=== PATIENT | male | born 1980 | race Two or more races ===

== ENCOUNTER 2019-09-10 13:09 | Inpatient (IN) | payer OTHER ==
[~2019-09-10] VITALS: Ht 170.2 cm; Wt 91.8 kg
[2019-09-10 13:46] VITALS: BP 127/78
[2019-09-10] MEDS ORDERED: Acetaminophen 500mg (ES) tab ORAL ONE ×2 (13:49→14:00)
[2019-09-10 14:03] LABS: APPEARANCE,URINE SLIGHTLY CLOUDY; BILIRUBIN, URINE NEGATIVE (NEGATIVE); GLUCOSE, URINE (UA) NEGATIVE (NEGATIVE); HEMATOCRIT 41.6 % (42.0-52.0); HEMOGLOBIN 14.8 G/DL (14.2-18.0); KETONES,URINE 4+ (NEGATIVE); LEUKOCYTE ESTERASE ,URINE 3+ (NEGATIVE); MEAN CORPUSCULAR VOLUME 87 FL (80-99); NITRITE,URINE NEGATIVE (NEGATIVE); PH,URINE 6 (4.5-8.0); PLATELET COUNT 165 K/UL (150-450); PROTEIN,URINE 3+ (NEGATIVE); RED BLOOD COUNT 4.79 M/UL (4.70-6.10); RED CELL DISTRIBUTION WIDTH 10.6 % (11.6-14.8); UROBILINOGEN,URINE 4 MG/DL (0.0-1.0); WHITE BLOOD COUNT 6.1 K/UL (4.8-10.8)
--- NOTE | 2019-09-10 14:10 | Emergency Room Report ---
History of Present Illness General Chief Complaint: Upper Respiratory Illness Source: Patient Present Illness HPI Disclaimer: Please note that this report is being documented using [employer] technology. This can lead to erroneous entry secondary to incorrect interpretation by the dictating instrument. HPI: 39-year-old male history of diabetes, spinal cord injury, presents from home with cough fever shortness of breath. Symptoms present for 1 week. Patient states he has a family member had positive coronavirus 2 days ago. Patient has a history of spinal cord injury and is nonambulatory. He self catheterizes 4 times daily. Denies nausea vomiting or diarrhea. Brought in by EMS. Hypoxic 90% on room air. Febrile on arrival. PMH: As above PSH: Reviewed Social Hx: Denies smoking drinking or illicit drug use Allergies: Coded Allergies: PENICILLINS (Unverified Allergy, Unknown, 09/10/19) Uncoded Allergies: PCN (Allergy, Unknown, 09/10/19) COVID-19 Screening Contact w/high risk pt: Yes Recent Travel to affected area: No Experienced COVID-19 symptoms?: Yes COVID-19 symptoms experienced: Shortness of Breath, Cough COVID-19 Testing performed [employer]: No Patient History Reviewed Nursing Documentation: PMH: Agreed; PSxH: Agreed Nursing Documentation-PMH Past Medical History: No History, Except For Hx Hypertension: Yes Hx Diabetes: Yes Review of Systems All Other Systems: negative except mentioned in HPI Physical Exam Vital Signs Date Time Temp Pulse Resp B/P (MAP) Pulse Ox O2 Delivery O2 Flow Rate FiO2 09/10/19 13:05 98.8 122 22 122/86 (98) 93 Nasal Cannula 2.0 Sp02 EP Interpretation: reviewed, normal General Appearance: well appearing, mild distress Head: normocephalic, atraumatic Eyes: bilateral eye PERRL, bilateral eye EOMI ENT: hearing grossly normal, moist mucus membranes Neck: full range of motion, supple Respiratory: no retraction, respiratory distress - Mild respiratory distress noted Cardiovascular #1: normal peripheral pulses, no murmur, tachycardia Gastrointestinal: non tender, soft, non-distended, no guarding Neurologic: alert, oriented x3, other - Bilateral lower extremity weakness noted, chronic Skin: normal color, warm/dry Procedures Critical Care Time Critical Care Time Critical care is managing this patient due to presentation with bilateral pneumonia UTI hypoxia requiring my acute intervention. Critical care time is 38 minutes and excludes procedures. Medical Decision Making Diagnostic Impression: Primary Impression: Suspected 2019 novel coronavirus infection Additional Impression: UTI (urinary tract infection) ER Course MDM: Patient presents from home short of breath hypoxic and febrile. Positive sick contacts. Differential included pneumonia, COVID-19, CHF, UTI, sepsis to name a few Clinical course-patient placed on the monitoring pulse oximetry, 4 L nasal cannula, septic work-up initiated, Tylenol given for fever. Urinalysis demonstrated evidence of infection. Chest x-ray demonstrated bilateral infiltrates, I am concerned for coronavirus infection in addition to UTI. Patient given IV antibiotics. Will be admitted to the telemetry floor under isolation. Labs - Laboratory Tests Test 09/10/19 13:38 White Blood Count 6.1 K/UL (4.8-10.8) Red Blood Count 4.79 M/UL (4.70-6.10) Hemoglobin 14.8 G/DL (14.2-18.0) Hematocrit 41.6 % (42.0-52.0) L Mean Corpuscular Volume 87 FL (80-99) Mean Corpuscular Hemoglobin 30.9 PG (27.0-31.0) Mean Corpuscular Hemoglobin Concent 35.5 G/DL (32.0-36.0) Red Cell Distribution Width 10.6 % (11.6-14.8) L Platelet Count 165 K/UL (150-450) Mean Platelet Volume 6.7 FL (6.5-10.1) Neutrophils (%) (Auto) % (45.0-75.0) Lymphocytes (%) (Auto) % (20.0-45.0) Monocytes (%) (Auto) % (1.0-10.0) Eosinophils (%) (Auto) % (0.0-3.0) Basophils (%) (Auto) % (0.0-2.0) Differential Total Cells Counted 100 Neutrophils % (Manual) 80 % (45-75) H Lymphocytes % (Manual) 18 % (20-45) L Monocytes % (Manual) 2 % (1-10) Eosinophils % (Manual) 0 % (0-3) Basophils % (Manual) 0 % (0-2) Band Neutrophils 0 % (0-8) Platelet Estimate Adequate Platelet Morphology Normal Red Blood Cell Morphology Normal Urine Color Yellow Urine Appearance Slightly cloudy Urine pH 6 (4.5-8.0) Urine Specific [place] 1.020 (1.005-1.035) Urine Protein 3+ (NEGATIVE) H Urine Glucose (UA) Negative (NEGATIVE) Urine Ketones 4+ (NEGATIVE) H Urine Blood 5+ (NEGATIVE) H Urine Nitrite Negative (NEGATIVE) Urine Bilirubin Negative (NEGATIVE) Urine Urobilinogen 4 MG/DL (0.0-1.0) H Urine Leukocyte Esterase 3+ (NEGATIVE) H Urine RBC 20-30 /HPF (0 - 0) H Urine WBC 20-30 /HPF (0 - 0) H Urine Squamous Epithelial Cells Occasional /LPF Urine Bacteria Few /HPF (NONE) Urine Mucus Few /LPF (NONE/OCC) H Sodium Level 131 MMOL/L (136-145) L Potassium Level 3.9 MMOL/L (3.5-5.1) Chloride Level 94 MMOL/L (98-107) L Carbon Dioxide Level 28 MMOL/L (21-32) Anion Gap 10 mmol/L (5-15) Blood Urea Nitrogen 8 mg/dL (7-18) Creatinine 1.0 MG/DL (0.55-1.30) Estimated Glomerular Filtration Rate > 60 mL/min (>60) Glucose Level 122 MG/DL (74-106) H Lactic Acid Level 1.10 mmol/L (0.4-2.0) Calcium Level 8.7 MG/DL (8.5-10.1) Total Bilirubin 0.4 MG/DL (0.2-1.0) Aspartate Amino Transferase (AST) 36 U/L (15-37) Alanine Aminotransferase (ALT) 45 U/L (12-78) Alkaline Phosphatase 67 U/L (46-116) Total Creatine Kinase 155 U/L (26-308) Creatine Kinase MB 0.5 NG/ML (0.0-3.6) Creatine Kinase MB Relative Index 0.3 Troponin I 0.000 ng/mL (0.000-0.056) Total Protein 8.1 G/DL (6.4-8.2) Albumin 3.3 G/DL (3.4-5.0) L Globulin 4.8 g/dL Albumin/Globulin Ratio 0.7 (1.0-2.7) L On reevaluation: Tachycardia improved Plan-patient will be admitted to the telemetry floor EKG Diagnostic Results Rate: normal Rhythm: other - Sinus tachycardia ST Segments: no acute changes Other Impression Sinus tachycardia Rhythm Strip Diag. Results EP Interpretation: yes Rate: 98 Rhythm: NSR, no ectopy Chest X-Ray Diagnostic Results Chest X-Ray Diagnostic Results : Chest X-Ray Ordered: Yes # of Views/Limited/Complete: 1 View Indication: Shortness of Breath EP Interpretation: Yes Interpretation: no effusion, no pneumothorax, other - Bilateral infiltrates noted Impression: Other - Bilateral infiltrates concerning for pneumonia Electronically Signed by: Alex Gomez MD Last Vital Signs Date Time Temp Pulse Resp B/P (MAP) Pulse Ox O2 Delivery O2 Flow Rate FiO2 09/10/19 14:00 123 27 Nasal Cannula 4.0 09/10/19 13:46 102.8 127/78 96 Status: improved Disposition: ADMITTED INPATIENT Condition: Serious Referrals: NON PHYSICIAN (PCP) Alex Gomez M.D. Sep 10, 2019 14:10
[2019-09-10 14:12] LABS: ANION GAP 10 mmol/L (5-15); BLOOD UREA NITROGEN 8 mg/dL (7-18); CALCIUM 8.7 MG/DL (8.5-10.1); CARBON DIOXIDE 28 MMOL/L (21-32); CHLORIDE 94 MMOL/L (98-107); POTASSIUM 3.9 MMOL/L (3.5-5.1); SODIUM 131 MMOL/L (136-145)
[2019-09-10 14:16] LABS: COLOR,URINE YELLOW
[2019-09-10 14:26] LABS: ALANINE AMINOTRANSFERASE 45 U/L (12-78); ALBUMIN 3.3 G/DL (3.4-5.0); ALBUMIN/GLOBULIN RATIO 0.7 (1.0-2.7); ALKALINE PHOSPHATASE 67 U/L (46-116); ASPARTATE AMINO TRANSFERASE 36 U/L (15-37); BILIRUBIN,TOTAL 0.4 MG/DL (0.2-1.0); CKMB 0.5 NG/ML (0.0-3.6); CREATINE KINASE 155 U/L (26-308)
--- NOTE | 2019-09-10 14:41 | Diagnostic Imaging Report ---
Indication: Shortness of breath Technique: One view of the chest Comparison: none Findings: Peripheral hazy infiltrates are seen in the left mid and lower lung and in the right midlung. The pleural spaces are clear. The heart is borderline enlarged. There is evidence of extensive thoracic spinal fusion surgery Impression: Bilateral infiltrates, likely pneumonia
[2019-09-10] MEDS ORDERED: TYLENOL EXTRA500 MG ORAL (14:52)
[2019-09-10 15:17] VITALS: BP 120/70
[2019-09-10] MEDS ORDERED: cefTRIAXone 1 GM in NS 55 ML IVPB ONE (15:45)
[2019-09-10] MEDS ORDERED: Azithromycin 500 MG in NS 275 ML IV ONE (15:45)
[2019-09-10 17:42] VITALS: BP 115/69
[2019-09-10 20:00] VITALS: BP 123/76
[2019-09-10] MEDS ORDERED: Albuterol 90mcg Inhaler 8gm INH PRN (21:00)
[2019-09-10] MEDS ORDERED: Hydroxychloroquine Fact Sheet MISC ONE (21:00)
[2019-09-10] MEDS: Heparin 5000 units/ml inj SUBQ SCH (22:37)
[2019-09-11] VITALS: BP 119/71
--- NOTE | 2019-09-11 01:00 | History and Physical Report ---
DATE OF ADMISSION: 09/10/2019 REASON FOR ADMISSION: Possible COVID pneumonia. HISTORY OF PRESENT ILLNESS: This is a 39-year-old male with medical problems, presents with cough and shortness of breath. Symptoms ongoing for approximately 1 week. The patient notes that his family members had positive COVID 2 days ago. The patient is nonambulatory. He was noted to be hypoxemic at 90% on room air. The patient also with fevers up to 102 in the emergency room. The patient admitted and under isolation. PAST MEDICAL HISTORY: Notable for diabetes, spinal cord injury, history of urinary retention with need for self-catheterization, nonambulatory state. MEDICATIONS: Reviewed. ALLERGIES: Reviewed. SOCIAL HISTORY: Lives at home with family. PHYSICAL EXAMINATION: GENERAL: Well-developed male, in mild distress. VITAL SIGNS: Reviewed. T-max 102.8, blood pressure 120/70, pulse rate up to 120, saturation 99% on 4 liters. HEENT: Negative. NECK: Supple. LUNGS: With moderate breath sounds. Some rhonchi noted. CARDIAC: Tachycardic. ABDOMEN: Soft. EXTREMITIES: No edema. NEUROLOGICAL: Patient is bedbound. LABORATORY DATA: Reviewed. Noted left shift with 80% neutrophils, lymphopenia. Sodium 131, albumin 3.3. IMPRESSION: Abnormal chest x-ray with concern for COVID-related pneumonia, fevers, hypoxemia, spinal cord injury. RECOMMENDATION: ID evaluation. Consider empiric therapy. Monitor clinically. Follow up x-ray. Follow up oxygen needs. Optimize care. Monitor for further respiratory deterioration. Admit to acute and follow clinically for changes. Jordan Howell M.D. DR: LISA JOB#: [id number] CC:
[2019-09-11 04:00] VITALS: BP 114/70
[2019-09-11 06:25] LABS: BASOPHILS % (AUTO) 0.3 % (0.0-2.0); HEMATOCRIT 36.8 % (42.0-52.0); HEMOGLOBIN 13.3 G/DL (14.2-18.0); LYMPHOCYTES % (AUTO) 19.4 % (20.0-45.0); MEAN CORPUSCULAR VOLUME 87 FL (80-99); MONOCYTES % (AUTO) 3.9 % (1.0-10.0); NEUTROPHILS % (AUTO) 76.4 % (45.0-75.0); PLATELET COUNT 167 K/UL (150-450); RED BLOOD COUNT 4.24 M/UL (4.70-6.10); RED CELL DISTRIBUTION WIDTH 10.6 % (11.6-14.8); WHITE BLOOD COUNT 6.7 K/UL (4.8-10.8)
[2019-09-11 07:12] LABS: ANION GAP 11 mmol/L (5-15); BLOOD UREA NITROGEN 4 mg/dL (7-18); CALCIUM 8.1 MG/DL (8.5-10.1); CARBON DIOXIDE 24 MMOL/L (21-32); CHLORIDE 99 MMOL/L (98-107); CREATININE 0.6 MG/DL (0.55-1.30); FERRITIN 543 NG/ML (8-388); POTASSIUM 3.8 MMOL/L (3.5-5.1); SODIUM 134 MMOL/L (136-145)
[2019-09-11 08:00] VITALS: BP 118/75
--- NOTE | 2019-09-11 08:14 | General Progress Note ---
Assessment/Plan Assessment/Plan: IMPRESSION: Abnormal chest x-ray with concern for COVID-related pneumonia, fevers, hypoxemia, spinal cord injury. elevated CRP and ferritin PLAN isolation ID noted DVT prophylaxis maintain same monitor as is impression, plan, and exam edited and reviewed in detail care discussed with RN Subjective Allergies: Coded Allergies: PENICILLINS (Unverified Allergy, Unknown, 09/10/19) Uncoded Allergies: PCN (Allergy, Unknown, 09/10/19) Subjective care noted Objective Last 24 Hour Vital Signs Date Time Temp Pulse Resp B/P (MAP) Pulse Ox O2 Delivery O2 Flow Rate FiO2 09/11/19 04:00 88 09/11/19 04:00 99.5 110 20 114/70 (85) 99 09/11/19 02:14 Nasal Cannula 3.0 09/11/19 01:57 100.6 09/11/19 00:28 103.5 09/11/19 00:00 121 09/11/19 00:00 103.6 118 20 119/71 (87) 97 09/10/19 20:00 102.2 100 23 123/76 (92) 100 09/10/19 20:00 101 09/10/19 18:35 99.9 97 23 115/69 98 Nasal Cannula 3.0 09/10/19 17:42 99.9 97 23 115/69 98 Nasal Cannula 3.0 09/10/19 15:17 99.9 100 21 120/70 99 Nasal Cannula 4.0 09/10/19 15:15 99.9 09/10/19 14:00 123 27 Nasal Cannula 4.0 09/10/19 13:46 102.8 123 27 127/78 96 Nasal Cannula 4.0 09/10/19 13:05 98.8 122 22 122/86 (98) 93 Nasal Cannula 2.0 Intake and Output 09/10/19 09/11/19 19:00 07:00 Intake Total 450 ml Output Total 1500 ml Balance -1050 ml Intake Oral 450 ml Output Urine Total 1500 ml Laboratory Tests 09/10/19 13:38: White Blood Count 6.1, Red Blood Count 4.79, Hemoglobin 14.8, Hematocrit 41.6L, Mean Corpuscular Volume 87, Mean Corpuscular Hemoglobin 30.9, Mean Corpuscular Hemoglobin Concent 35.5, Red Cell Distribution Width 10.6L, Platelet Count 165, Mean Platelet Volume 6.7, Neutrophils (%) (Auto) , Lymphocytes (%) (Auto) , Monocytes (%) (Auto) , Eosinophils (%) (Auto) , Basophils (%) (Auto) , Differential Total Cells Counted 100, Neutrophils % (Manual) 80H, Lymphocytes % (Manual) 18L, Monocytes % (Manual) 2, Eosinophils % (Manual) 0, Basophils % ( Manual) 0, Band Neutrophils 0, Platelet Estimate Adequate, Platelet Morphology Normal, Red Blood Cell Morphology Normal, Urine Color Yellow, Urine Appearance Slightly cloudy, Urine pH 6, Urine Specific [place] 1.020, Urine Protein 3+H, Urine Glucose (UA) Negative, Urine Ketones 4+H, Urine Blood 5+H, Urine Nitrite Negative, Urine Bilirubin Negative, Urine Urobilinogen 4H, Urine Leukocyte Esterase 3+H, Urine RBC 20-30H, Urine WBC 20-30H, Urine Squamous Epithelial Cells Occasional, Urine Bacteria Few, Urine Mucus FewH, Sodium Level 131L, Potassium Level 3.9, Chloride Level 94L, Carbon Dioxide Level 28, Anion Gap 10, Blood Urea Nitrogen 8, Creatinine 1.0, Estimat Glomerular Filtration Rate > 60, Glucose Level 122H, Lactic Acid Level 1.10, Calcium Level 8.7, Total Bilirubin 0.4, Aspartate Amino Transf (AST/SGOT) 36, Alanine Aminotransferase (ALT/SGPT) 45, Alkaline Phosphatase 67, Total Creatine Kinase 155, Creatine Kinase MB 0.5, Creatine Kinase MB Relative Index 0.3, Troponin I 0.000, Total Protein 8.1, Albumin 3.3L, Globulin 4.8, Albumin/Globulin Ratio 0.7L 09/11/19 05:00: Sodium Level 134L, Potassium Level 3.8, Chloride Level 99, Carbon Dioxide Level 24, Anion Gap 11, Blood Urea Nitrogen 4L, Creatinine 0.6, Estimat Glomerular Filtration Rate > 60, Glucose Level 93, Calcium Level 8.1L, D-Dimer 0.33, Ferritin 543H, C-Reactive Protein, Quantitative 18.3H 09/11/19 05:50: White Blood Count 6.7, Red Blood Count 4.24L, Hemoglobin 13.3L, Hematocrit 36.8L , Mean Corpuscular Volume 87, Mean Corpuscular Hemoglobin 31.4H, Mean Corpuscular Hemoglobin Concent 36.1H, Red Cell Distribution Width 10.6L, Platelet Count 167, Mean Platelet Volume 6.6, Neutrophils (%) (Auto) 76.4H, Lymphocytes (%) (Auto) 19.4L, Monocytes (%) (Auto) 3.9, Eosinophils (%) (Auto) 0.0, Basophils (%) (Auto) 0.3 Height (Feet): 5 Height (Inches): 7.00 Weight (Pounds): 200 Objective deferred to ANGELES+ Jordan Howell MD Sep 11, 2019 08:14
[2019-09-11] MEDS: cefTRIAXone 1 GM in D5W 55 ML IVPB SCH (08:54)
[2019-09-11] MEDS: Heparin 5000 units/ml inj SUBQ SCH ×2 (08:57→21:08)
[2019-09-11] MEDS ORDERED: Remdesivir Fact Sheet MISC SCH (11:45)
[2019-09-11 12:00] VITALS: BP 108/69
[2019-09-11] MEDS ORDERED: Loading Dose:Remdesivir 200mg/NS 210ml IV SCH (13:00)
[2019-09-11 16:00] VITALS: BP 113/71
--- NOTE | 2019-09-11 17:18 | Diagnostic Imaging Report ---
Indication: Shortness of breath Technique: One view of the chest Comparison: 09/10/2019 Findings: Bilateral interstitial and airspace opacities are unchanged. Thoracic spine fusion hardware is unchanged. Impression: Unchanged bilateral infiltrates, likely pneumonia.
[2019-09-11 20:00] VITALS: BP 121/72
[2019-09-11] MEDS: guaiFENesin /DM 10ml syrup ORAL PRN (20:58)
--- NOTE | 2019-09-11 22:30 | Consultation ---
DATE OF CONSULTATION: 09/11/2019 INFECTIOUS DISEASE CONSULTATION This consult is for coverage of Dr. Pena. CONSULTING PHYSICIAN: Albino Sage MD. PRIMARY ATTENDING: Jordan Howell MD. REASON FOR CONSULT: COVID-19 pneumonia, UTI. HISTORY OF PRESENT ILLNESS: This 39-year-old male admitted yesterday from home complaining of shortness of breath, cough for one week. Patient had a family member that became positive for COVID-19 disease 2 days ago. He was hypoxemic at the time of admission. PAST MEDICAL HISTORY: Significant for spinal cord injury. Patient is paraplegic. Has urinary incontinent and self-catheterizes himself. ALLERGIES: Allergic to penicillin. PAST SURGICAL HISTORY: History of thoracic spine surgery. SOCIAL HISTORY: Patient is from [place]. Denies alcohol, drug abuse, or smoking. MEDICATIONS: Patient getting Remdesivir, ceftriaxone, Protonix, albuterol, Tylenol, Ambien, heparin. PHYSICAL EXAMINATION: VITAL SIGNS: Temperature 101.4, pulse 98, blood pressure 118/75. GENERAL APPEARANCE: No acute distress. Seems to have normal weight. HEAD AND NECK: [place] conjunctivae. HEART: Normal rate. LUNGS: Clear. ABDOMEN: Soft. EXTREMITIES: Has no edema. Has atrophic muscle and legs. NEUROLOGIC: He is awake, alert, oriented x3. Paraplegic. LABORATORY AND DIAGNOSTIC DATA: WBC 6.7, hemoglobin 13.3, hematocrit 36.8, platelets 167. Sodium 134, potassium 3.8, chloride 99, bicarbonate 24, BUN 4, creatinine 0.6, glucose 93. Ferritin 543. CRP 18.3. Blood gas showed pO2 of 94.5, O2 saturation 97.2. UA showed wbc of 20 to 30, rbc of 20 to 30. Urine culture growing gram-negative bacilli. Sputum culture is pending. COVID-19 test was positive. IMPRESSION: COVID-19 pneumonia. Has bacteriuria UTI. Has paraplegia, urinary incontinence. Has spinal cord injury history. RECOMMENDATION: Continue ceftriaxone. Consider Remdesivir. We will follow up the cultures. At the end of my exam, I thank Dr. Howell for involving me in the care of this patient. Albino Sage M.D. DR: NOEL JOB#: [id number] CC: ORQUIDEA
[2019-09-12] VITALS: BP 107/72
[2019-09-12 04:00] VITALS: BP 130/69
[2019-09-12 06:58] LABS: ALANINE AMINOTRANSFERASE 44 U/L (12-78); ALBUMIN 2.7 G/DL (3.4-5.0); ALKALINE PHOSPHATASE 65 U/L (46-116); ASPARTATE AMINO TRANSFERASE 61 U/L (15-37); BILIRUBIN,DIRECT 0.1 MG/DL (0.0-0.3); BILIRUBIN,TOTAL 0.5 MG/DL (0.2-1.0)
[2019-09-12 08:00] VITALS: BP 117/77
[2019-09-12] MEDS: cefTRIAXone 1 GM in D5W 55 ML IVPB SCH (08:46)
[2019-09-12] MEDS: Heparin 5000 units/ml inj SUBQ SCH ×2 (08:49→22:28)
--- NOTE | 2019-09-12 09:03 | General Progress Note ---
Assessment/Plan Assessment/Plan: IMPRESSION: Abnormal chest x-ray + COVID-related pneumonia, fevers, hypoxemia, spinal cord injury. elevated CRP and ferritin PLAN isolation ID noted DVT prophylaxis maintain same monitor as is impression, plan, and exam edited and reviewed in detail care discussed with RN Subjective Allergies: Coded Allergies: PENICILLINS (Verified Allergy, Unknown, 09/11/19) Patient does not remember the reaction or severity, currently tolerates Ceftriaxone IV and is having no allergic reactions Uncoded Allergies: PCN (Allergy, Unknown, 09/10/19) Subjective care noted Objective Last 24 Hour Vital Signs Date Time Temp Pulse Resp B/P (MAP) Pulse Ox O2 Delivery O2 Flow Rate FiO2 09/12/19 04:00 96 09/12/19 04:00 99.5 83 20 130/69 (89) 97 09/12/19 00:00 99.7 85 20 107/72 (84) 97 09/12/19 00:00 86 09/11/19 22:21 102.2 09/11/19 21:00 Nasal Cannula 3.0 09/11/19 20:00 96 09/11/19 20:00 102.2 100 20 121/72 (88) 97 09/11/19 16:00 101.5 102 20 113/71 (85) 98 09/11/19 15:40 105 09/11/19 12:00 99.9 92 20 108/69 (82) 98 09/11/19 11:32 95 Intake and Output 09/11/19 09/12/19 19:00 07:00 Intake Total 960 ml 550 ml Output Total 1300 ml 1500 ml Balance -340 ml -950 ml Intake Oral 960 ml 550 ml Output Urine Total 1300 ml 1500 ml Laboratory Tests 09/12/19 04:00: Total Bilirubin 0.5, Direct Bilirubin 0.1, Aspartate Amino Transf (AST/SGOT) 61H , Alanine Aminotransferase (ALT/SGPT) 44, Alkaline Phosphatase 65, Total Protein 7.4, Albumin 2.7L Height (Feet): 5 Height (Inches): 7.00 Weight (Pounds): 202 Objective deferred to ANGELES+ Jordan Howell MD Sep 12, 2019 09:03
--- NOTE | 2019-09-12 10:59 | Infectious Diseases Prog Note ---
Assessment/Plan Assessment/Plan antibiotics ceftriaxone 6.3.20 - remdesivir EUA 6.4.20 - A 1. COVID 19 pneumonia on 3 liters O2, 97 percent saturation 2. e.coli UTI 3. spinal cord injury 4. paraplegia P 1. continue ceftriaxone 4 more days 2. continue remdesivir EUA 3 more days 3. continue isolation 4. will follow up cultures Subjective Respiratory: Reports: shortness of breath, dry cough Gastrointestinal/Abdominal: Denies: nausea, vomiting Musculoskeletal: Denies: pain Allergies: Coded Allergies: PENICILLINS (Verified Allergy, Unknown, 09/11/19) Patient does not remember the reaction or severity, currently tolerates Ceftriaxone IV and is having no allergic reactions Uncoded Allergies: PCN (Allergy, Unknown, 09/10/19) Objective Vital Signs Last 24 Hour Vital Signs Date Time Temp Pulse Resp B/P (MAP) Pulse Ox O2 Delivery O2 Flow Rate FiO2 09/12/19 09:00 Nasal Cannula 3.0 09/12/19 08:00 98.8 94 18 117/77 (90) 97 09/12/19 04:00 96 09/12/19 04:00 99.5 83 20 130/69 (89) 97 09/12/19 00:00 99.7 85 20 107/72 (84) 97 09/12/19 00:00 86 09/11/19 22:21 102.2 09/11/19 21:00 Nasal Cannula 3.0 09/11/19 20:00 96 09/11/19 20:00 102.2 100 20 121/72 (88) 97 09/11/19 16:00 101.5 102 20 113/71 (85) 98 09/11/19 15:40 105 09/11/19 12:00 99.9 92 20 108/69 (82) 98 09/11/19 11:32 95 Height (Feet): 5 Height (Inches): 7.00 Weight (Pounds): 202 Microbiology Date/Time Source Procedure Growth Status 09/10/19 13:38 Blood Blood Culture - Preliminary NO GROWTH AFTER 24 HOURS Resulted 09/10/19 13:25 Blood Blood Culture - Preliminary NO GROWTH AFTER 24 HOURS Resulted 09/11/19 00:00 Sputum Expectorated Gram Stain - Final Resulted 09/11/19 00:00 Sputum Expectorated Sputum Culture - Preliminary NORMAL UPPER RESPIRATORY NARCISO AT 24 ... Resulted 09/10/19 13:38 Nasopharynx Coronavirus COVID-19 PCR (JACE) - Final Complete 09/10/19 13:38 Urine,Clean Catch Urine Culture - Final Escherichia Coli Complete Laboratory Tests Test 09/12/19 04:00 Total Bilirubin 0.5 MG/DL (0.2-1.0) Direct Bilirubin 0.1 MG/DL (0.0-0.3) Aspartate Amino Transf (AST/SGOT) 61 U/L (15-37) H Alanine Aminotransferase (ALT/SGPT) 44 U/L (12-78) Alkaline Phosphatase 65 U/L (46-116) Total Protein 7.4 G/DL (6.4-8.2) Albumin 2.7 G/DL (3.4-5.0) L Current Medications Medications (Trade) Dose Ordered Sig/Prasad Route PRN Reason Start Time Stop Time Status Last Admin Dose Admin Acetaminophen (Tylenol) 650 mg Q4H PRN ORAL Mild Pain (Pain Scale 1-3) 09/10/19 21:00 10/10/19 20:59 09/11/19 21:51 Al Hydroxide/Mg Hydroxide (Mylanta) 30 ml Q4H PRN ORAL Constipation 09/10/19 21:00 10/10/19 20:59 Albuterol Sulfate (Proventil MDI) 2 puff Q4H PRN INH Shortness of Breath 09/10/19 21:00 12/09/19 20:59 Ceftriaxone Sodium 1 gm/ Dextrose 55 ml @ 110 mls/hr Q24H IVPB 09/11/19 09:00 09/18/19 08:59 09/12/19 08:46 Guaifenesin/ Dextromethorphan (Robitussin DM Syrup) 10 ml Q4H PRN ORAL For Cough 09/11/19 18:45 12/10/19 18:44 09/11/19 20:58 Heparin Sodium (Porcine) (Heparin 5000 units/ml) 5,000 units EVERY 12 HOURS SUBQ 09/10/19 21:00 10/25/19 20:59 09/12/19 08:49 Pantoprazole (Protonix) 40 mg DAILY ORAL 09/11/19 09:00 10/11/19 08:59 09/12/19 08:46 Remdesivir 100 mg/ Sodium Chloride 250 ml @ 250 mls/hr Q24H IV 09/12/19 13:00 09/15/19 13:59 Lucien Pena MD Sep 12, 2019 10:59
[2019-09-12 11:49] VITALS: BP 120/69
[2019-09-12] MEDS: Maintenance Dose:Remdesivir 100mg/NS 230ml x 4 Doses IV SCH (12:52)
[2019-09-12 16:00] VITALS: BP 116/73
[2019-09-12 20:00] VITALS: BP 121/78
[2019-09-13] VITALS: BP 125/66
[2019-09-13 04:00] VITALS: BP 119/79
[2019-09-13 06:02] LABS: ANION GAP 13 mmol/L (5-15); BLOOD UREA NITROGEN 7 mg/dL (7-18); CALCIUM 8.6 MG/DL (8.5-10.1); CARBON DIOXIDE 25 MMOL/L (21-32); CHLORIDE 98 MMOL/L (98-107); CREATININE 0.7 MG/DL (0.55-1.30); POTASSIUM 3.5 MMOL/L (3.5-5.1); SODIUM 136 MMOL/L (136-145)
[2019-09-13 06:10] LABS: ALANINE AMINOTRANSFERASE 59 U/L (12-78); ALBUMIN 2.6 G/DL (3.4-5.0); ALKALINE PHOSPHATASE 66 U/L (46-116); ASPARTATE AMINO TRANSFERASE 51 U/L (15-37); BILIRUBIN,DIRECT < 0.1 MG/DL (0.0-0.3); BILIRUBIN,TOTAL 0.3 MG/DL (0.2-1.0)
--- NOTE | 2019-09-13 07:57 | General Progress Note ---
Assessment/Plan Assessment/Plan: IMPRESSION: Abnormal chest x-ray + COVID-related pneumonia, fevers, hypoxemia, spinal cord injury. elevated CRP and ferritin PLAN isolation ID noted DVT prophylaxis maintain same monitor as is taper oxygen repeat cxr in am impression, plan, and exam edited and reviewed in detail care discussed with RN Subjective Allergies: Coded Allergies: PENICILLINS (Verified Allergy, Unknown, 09/11/19) Patient does not remember the reaction or severity, currently tolerates Ceftriaxone IV and is having no allergic reactions Uncoded Allergies: PCN (Allergy, Unknown, 09/10/19) Subjective care noted Objective Last 24 Hour Vital Signs Date Time Temp Pulse Resp B/P (MAP) Pulse Ox O2 Delivery O2 Flow Rate FiO2 09/13/19 04:00 87 09/13/19 04:00 96.8 81 18 119/79 (92) 97 09/13/19 00:00 97.7 88 18 125/66 (85) 97 09/13/19 00:00 102 09/12/19 21:00 Nasal Cannula 3.0 09/12/19 20:00 96.6 92 18 121/78 (92) 97 09/12/19 20:00 101 09/12/19 16:00 93 09/12/19 16:00 98.8 92 22 116/73 (87) 95 09/12/19 12:00 90 09/12/19 11:49 98.4 83 22 120/69 (86) 93 09/12/19 09:00 Nasal Cannula 3.0 09/12/19 08:00 98.8 94 18 117/77 (90) 97 Intake and Output 09/12/19 09/13/19 19:00 07:00 Intake Total 700 ml Output Total 1300 ml 700 ml Balance -600 ml -700 ml Intake Oral 700 ml Output Urine Total 1300 ml 700 ml # Bowel Movements 1 Laboratory Tests 09/13/19 05:15: Sodium Level 136, Potassium Level 3.5, Chloride Level 98, Carbon Dioxide Level 25, Anion Gap 13, Blood Urea Nitrogen 7, Creatinine 0.7, Estimat Glomerular Filtration Rate > 60, Glucose Level 104, Calcium Level 8.6, Total Bilirubin 0.3 , Direct Bilirubin < 0.1, Aspartate Amino Transf (AST/SGOT) 51H, Alanine Aminotransferase (ALT/SGPT) 59, Alkaline Phosphatase 66, Total Protein 7.4, Albumin 2.6L Height (Feet): 5 Height (Inches): 7.00 Weight (Pounds): 202 Objective deferred to ANGELES+ Jordan Howell MD Sep 13, 2019 07:57
[2019-09-13 08:00] VITALS: BP 113/75
[2019-09-13] MEDS: cefTRIAXone 1 GM in D5W 55 ML IVPB SCH (09:44)
[2019-09-13] MEDS: Heparin 5000 units/ml inj SUBQ SCH ×2 (09:46→20:59)
--- NOTE | 2019-09-13 10:28 | Infectious Diseases Prog Note ---
Assessment/Plan Assessment/Plan antibiotics ceftriaxone 6.3.20 - remdesivir EUA 6.4.20 - A 1. COVID 19 pneumonia on 3 liters O2, 98 percent saturation 2. e.coli UTI 3. spinal cord injury 4. paraplegia P 1. continue ceftriaxone 3 more days 2. continue remdesivir EUA 2 more days 3. continue isolation 4. will follow up cultures Subjective ROS Limited/Unobtainable: Yes Allergies: Coded Allergies: PENICILLINS (Verified Allergy, Unknown, 09/11/19) Patient does not remember the reaction or severity, currently tolerates Ceftriaxone IV and is having no allergic reactions Uncoded Allergies: PCN (Allergy, Unknown, 09/10/19) Objective Vital Signs Last 24 Hour Vital Signs Date Time Temp Pulse Resp B/P (MAP) Pulse Ox O2 Delivery O2 Flow Rate FiO2 09/13/19 08:00 98.1 83 20 113/75 (88) 98 09/13/19 04:00 87 09/13/19 04:00 96.8 81 18 119/79 (92) 97 09/13/19 00:00 97.7 88 18 125/66 (85) 97 09/13/19 00:00 102 09/12/19 21:00 Nasal Cannula 3.0 09/12/19 20:00 96.6 92 18 121/78 (92) 97 09/12/19 20:00 101 09/12/19 16:00 93 09/12/19 16:00 98.8 92 22 116/73 (87) 95 09/12/19 12:00 90 09/12/19 11:49 98.4 83 22 120/69 (86) 93 Height (Feet): 5 Height (Inches): 7.00 Weight (Pounds): 202 Microbiology Date/Time Source Procedure Growth Status 09/10/19 13:38 Blood Blood Culture - Preliminary NO GROWTH AFTER 48 HOURS Resulted 09/10/19 13:25 Blood Blood Culture - Preliminary NO GROWTH AFTER 48 HOURS Resulted 09/11/19 00:00 Sputum Expectorated Gram Stain - Final Complete 09/11/19 00:00 Sputum Expectorated Sputum Culture - Final NORMAL UPPER RESPIRATORY NARCISO PRESENT Complete 09/10/19 13:38 Nasopharynx Coronavirus COVID-19 PCR ([facility]) - Final Complete 09/10/19 13:38 Urine,Clean Catch Urine Culture - Final Escherichia Coli Complete Laboratory Tests Test 09/13/19 05:15 Sodium Level 136 MMOL/L (136-145) Potassium Level 3.5 MMOL/L (3.5-5.1) Chloride Level 98 MMOL/L (98-107) Carbon Dioxide Level 25 MMOL/L (21-32) Anion Gap 13 mmol/L (5-15) Blood Urea Nitrogen 7 mg/dL (7-18) Creatinine 0.7 MG/DL (0.55-1.30) Estimat Glomerular Filtration Rate > 60 mL/min (>60) Glucose Level 104 MG/DL (74-106) Calcium Level 8.6 MG/DL (8.5-10.1) Total Bilirubin 0.3 MG/DL (0.2-1.0) Direct Bilirubin < 0.1 MG/DL (0.0-0.3) Aspartate Amino Transf (AST/SGOT) 51 U/L (15-37) H Alanine Aminotransferase (ALT/SGPT) 59 U/L (12-78) Alkaline Phosphatase 66 U/L (46-116) Total Protein 7.4 G/DL (6.4-8.2) Albumin 2.6 G/DL (3.4-5.0) L Current Medications Medications (Trade) Dose Ordered Sig/Prasad Route PRN Reason Start Time Stop Time Status Last Admin Dose Admin Acetaminophen (Tylenol) 650 mg Q4H PRN ORAL Mild Pain (Pain Scale 1-3) 09/10/19 21:00 10/10/19 20:59 09/11/19 21:51 Al Hydroxide/Mg Hydroxide (Mylanta) 30 ml Q4H PRN ORAL Constipation 09/10/19 21:00 10/10/19 20:59 Albuterol Sulfate (Proventil MDI) 2 puff Q4H PRN INH Shortness of Breath 09/10/19 21:00 12/09/19 20:59 Ceftriaxone Sodium 1 gm/ Dextrose 55 ml @ 110 mls/hr Q24H IVPB 09/11/19 09:00 09/18/19 08:59 09/13/19 09:44 Guaifenesin/ Dextromethorphan (Robitussin DM Syrup) 10 ml Q4H PRN ORAL For Cough 09/11/19 18:45 12/10/19 18:44 09/11/19 20:58 Heparin Sodium (Porcine) (Heparin 5000 units/ml) 5,000 units EVERY 12 HOURS SUBQ 09/10/19 21:00 10/25/19 20:59 09/13/19 09:46 Pantoprazole (Protonix) 40 mg DAILY ORAL 09/11/19 09:00 10/11/19 08:59 09/13/19 09:44 Remdesivir 100 mg/ Sodium Chloride 250 ml @ 250 mls/hr Q24H IV 09/12/19 13:00 09/15/19 13:59 09/12/19 12:52 Lucien Pena MD Sep 13, 2019 10:28
[2019-09-13 12:00] VITALS: BP 128/84
[2019-09-13] MEDS: Maintenance Dose:Remdesivir 100mg/NS 230ml x 4 Doses IV SCH (12:49)
[2019-09-13] MEDS: guaiFENesin /DM 10ml syrup ORAL PRN ×2 (12:57→18:09)
[2019-09-13 16:00] VITALS: BP 116/74
[2019-09-13 20:00] VITALS: BP 146/88
[2019-09-14] VITALS: BP 126/76
[2019-09-14 04:00] VITALS: BP 133/63
[2019-09-14 04:25] LABS: ALANINE AMINOTRANSFERASE 71 U/L (12-78); ALBUMIN 2.5 G/DL (3.4-5.0); ALKALINE PHOSPHATASE 69 U/L (46-116); ASPARTATE AMINO TRANSFERASE 60 U/L (15-37); BILIRUBIN,DIRECT 0.1 MG/DL (0.0-0.3); BILIRUBIN,TOTAL 0.4 MG/DL (0.2-1.0)
[2019-09-14 08:00] VITALS: BP 120/79
--- NOTE | 2019-09-14 08:49 | General Progress Note ---
Assessment/Plan Assessment/Plan: IMPRESSION: Abnormal chest x-ray + COVID-related pneumonia, fevers, hypoxemia, spinal cord injury. elevated CRP and ferritin PLAN isolation ID noted DVT prophylaxis maintain same monitor as is taper oxygen repeat cxr to assess for improvement impression, plan, and exam edited and reviewed in detail care discussed with RN Subjective Allergies: Coded Allergies: PENICILLINS (Verified Allergy, Unknown, 09/11/19) Patient does not remember the reaction or severity, currently tolerates Ceftriaxone IV and is having no allergic reactions Uncoded Allergies: PCN (Allergy, Unknown, 09/10/19) Subjective care noted Objective Last 24 Hour Vital Signs Date Time Temp Pulse Resp B/P (MAP) Pulse Ox O2 Delivery O2 Flow Rate FiO2 09/14/19 04:00 92 09/14/19 04:00 99.1 90 19 133/63 (86) 95 09/14/19 00:00 99.7 82 18 126/76 (93) 97 09/14/19 00:00 105 09/13/19 21:00 Nasal Cannula 3.0 09/13/19 20:00 100 09/13/19 20:00 100.0 82 18 146/88 (107) 95 09/13/19 16:00 98.4 82 20 116/74 (88) 98 09/13/19 16:00 88 09/13/19 12:00 88 09/13/19 12:00 97.9 74 20 128/84 (99) 98 09/13/19 09:00 Nasal Cannula 3.0 Intake and Output 09/13/19 09/14/19 19:00 07:00 Intake Total 236 ml Output Total 2400 ml Balance 236 ml -2400 ml Intake Oral 236 ml Output Urine Total 2400 ml # Bowel Movements 1 Laboratory Tests 09/14/19 04:00: Total Bilirubin 0.4, Direct Bilirubin 0.1, Aspartate Amino Transf (AST/SGOT) 60H , Alanine Aminotransferase (ALT/SGPT) 71, Alkaline Phosphatase 69, Total Protein 7.2, Albumin 2.5L Height (Feet): 5 Height (Inches): 7.00 Weight (Pounds): 202 Objective deferred to ANGELES+ Jordan Howell MD Sep 14, 2019 08:49
[2019-09-14] MEDS: cefTRIAXone 1 GM in D5W 55 ML IVPB SCH (09:05)
[2019-09-14] MEDS: Heparin 5000 units/ml inj SUBQ SCH ×2 (09:06→20:30)
--- NOTE | 2019-09-14 10:22 | Diagnostic Imaging Report ---
EXAM: XR Chest, 1 View CLINICAL HISTORY: Shortness of breath TECHNIQUE: Frontal view of the chest. COMPARISON: Chest x-ray dated 09/11/19 FINDINGS: Lungs: No significant change in the patchy interstitial and airspace opacities in bilateral lungs. No new consolidation seen. Pleural space: Unremarkable. The costophrenic angles are sharp. No visible pneumothorax. Heart: Unremarkable. No cardiomegaly. Mediastinum: Unremarkable. Bones/joints: Intact appearance of thoracic spine fixation hardware. Tubes, lines and devices: Telemetry leads overlie the thorax. IMPRESSION: No significant interval change in the bilateral pulmonary infiltrates concerning for pneumonia.
[2019-09-14 12:00] VITALS: BP 112/71
[2019-09-14] MEDS: Maintenance Dose:Remdesivir 100mg/NS 230ml x 4 Doses IV SCH (12:50)
--- NOTE | 2019-09-14 14:22 | Infectious Diseases Prog Note ---
Assessment/Plan Assessment/Plan A 1. COVID19 pneumonia 2. E.coli UTI 3. spinal cord injury 4. paraplegia P 1. continue ceftriaxone 2 more days 2. continue remdesivir EUA 1 more day 3. continue isolation Subjective ROS Limited/Unobtainable: Yes Constitutional: Reports: fever, other - [id number] Allergies: Coded Allergies: PENICILLINS (Verified Allergy, Unknown, 09/11/19) Patient does not remember the reaction or severity, currently tolerates Ceftriaxone IV and is having no allergic reactions Uncoded Allergies: PCN (Allergy, Unknown, 09/10/19) Objective Vital Signs Last 24 Hour Vital Signs Date Time Temp Pulse Resp B/P (MAP) Pulse Ox O2 Delivery O2 Flow Rate FiO2 09/14/19 04:00 92 09/14/19 04:00 99.1 90 19 133/63 (86) 95 09/14/19 00:00 99.7 82 18 126/76 (93) 97 09/14/19 00:00 105 09/13/19 21:00 Nasal Cannula 3.0 09/13/19 20:00 100 09/13/19 20:00 100.0 82 18 146/88 (107) 95 09/13/19 16:00 98.4 82 20 116/74 (88) 98 09/13/19 16:00 88 Height (Feet): 5 Height (Inches): 7.00 Weight (Pounds): 202 General Appearance: no acute distress HEENT: mucous membranes moist Respiratory/Chest: lungs clear Cardiovascular: normal rate Abdomen: soft, non tender Extremities: no edema Neurologic/Psychiatric: other - sleepimg Laboratory Tests Test 09/14/19 04:00 Total Bilirubin 0.4 MG/DL (0.2-1.0) Direct Bilirubin 0.1 MG/DL (0.0-0.3) Aspartate Amino Transf (AST/SGOT) 60 U/L (15-37) H Alanine Aminotransferase (ALT/SGPT) 71 U/L (12-78) Alkaline Phosphatase 69 U/L (46-116) Total Protein 7.2 G/DL (6.4-8.2) Albumin 2.5 G/DL (3.4-5.0) L Current Medications Medications (Trade) Dose Ordered Sig/Prasad Route PRN Reason Start Time Stop Time Status Last Admin Dose Admin Acetaminophen (Tylenol) 650 mg Q4H PRN ORAL Mild Pain (Pain Scale 1-3) 09/10/19 21:00 10/10/19 20:59 09/11/19 21:51 Al Hydroxide/Mg Hydroxide (Mylanta) 30 ml Q4H PRN ORAL Constipation 09/10/19 21:00 10/10/19 20:59 Albuterol Sulfate (Proventil MDI) 2 puff Q4H PRN INH Shortness of Breath 09/10/19 21:00 12/09/19 20:59 Ceftriaxone Sodium 1 gm/ Dextrose 55 ml @ 110 mls/hr Q24H IVPB 09/11/19 09:00 09/18/19 08:59 09/14/19 09:05 Guaifenesin/ Dextromethorphan (Robitussin DM Syrup) 10 ml Q4H PRN ORAL For Cough 09/11/19 18:45 12/10/19 18:44 09/13/19 18:09 Heparin Sodium (Porcine) (Heparin 5000 units/ml) 5,000 units EVERY 12 HOURS SUBQ 09/10/19 21:00 10/25/19 20:59 09/14/19 09:06 Pantoprazole (Protonix) 40 mg DAILY ORAL 09/11/19 09:00 10/11/19 08:59 09/14/19 09:05 Remdesivir 100 mg/ Sodium Chloride 250 ml @ 250 mls/hr Q24H IV 09/12/19 13:00 09/15/19 13:59 09/14/19 12:50 Albino Sage MD Sep 14, 2019 14:22
[2019-09-14 16:00] VITALS: BP 134/87
[2019-09-14] MEDS: guaiFENesin /DM 10ml syrup ORAL PRN (18:07)
[2019-09-14 20:00] VITALS: BP 136/87
[2019-09-15] VITALS: BP 132/85
[2019-09-15 04:00] VITALS: BP 149/85
[2019-09-15 05:21] LABS: ALANINE AMINOTRANSFERASE 111 U/L (12-78); ALBUMIN 2.6 G/DL (3.4-5.0); ALKALINE PHOSPHATASE 73 U/L (46-116); ASPARTATE AMINO TRANSFERASE 73 U/L (15-37); BILIRUBIN,DIRECT < 0.1 MG/DL (0.0-0.3); BILIRUBIN,TOTAL 0.4 MG/DL (0.2-1.0)
[2019-09-15 08:00] VITALS: BP 113/63
--- NOTE | 2019-09-15 08:05 | General Progress Note ---
Assessment/Plan Assessment/Plan: IMPRESSION: Abnormal chest x-ray + COVID-related pneumonia, fevers, hypoxemia, spinal cord injury. elevated CRP and ferritin PLAN isolation ID noted DVT prophylaxis maintain same monitor as is taper oxygen repeat cxr DVT prophylaxis impression, plan, and exam edited and reviewed in detail care discussed with RN Subjective Allergies: Coded Allergies: PENICILLINS (Verified Allergy, Unknown, 09/11/19) Patient does not remember the reaction or severity, currently tolerates Ceftriaxone IV and is having no allergic reactions Uncoded Allergies: PCN (Allergy, Unknown, 09/10/19) Subjective care noted CXR not improved o2 needs better Objective Last 24 Hour Vital Signs Date Time Temp Pulse Resp B/P (MAP) Pulse Ox O2 Delivery O2 Flow Rate FiO2 09/15/19 04:00 100.0 72 17 149/85 (106) 97 09/15/19 04:00 65 09/15/19 00:00 91 09/15/19 00:00 97.9 78 16 132/85 (101) 97 09/14/19 21:00 Nasal Cannula 2.0 09/14/19 20:00 98.1 84 17 136/87 (103) 96 09/14/19 20:00 80 09/14/19 16:00 80 09/14/19 16:00 98.1 98 18 134/87 (103) 95 09/14/19 12:00 81 09/14/19 12:00 98.1 82 18 112/71 (85) 97 09/14/19 09:00 Nasal Cannula 2.0 Intake and Output 09/14/19 09/15/19 19:00 07:00 Intake Total 1135 ml 400 ml Output Total 1550 ml 2550 ml Balance -415 ml -2150 ml Intake Oral 830 ml 400 ml IV Total 305 ml Output Urine Total 1550 ml 2550 ml # Voids 1 # Bowel Movements 1 Laboratory Tests 09/15/19 04:00: Total Bilirubin 0.4, Direct Bilirubin < 0.1, Aspartate Amino Transf (AST/SGOT) 73H, Alanine Aminotransferase (ALT/SGPT) 111H, Alkaline Phosphatase 73, Total Protein 7.8, Albumin 2.6L Height (Feet): 5 Height (Inches): 7.00 Weight (Pounds): 202 Objective deferred to COVID+ Jordan Howell MD Sep 15, 2019 08:05
[2019-09-15] MEDS: cefTRIAXone 1 GM in D5W 55 ML IVPB SCH (09:05)
[2019-09-15] MEDS: Heparin 5000 units/ml inj SUBQ SCH ×2 (09:06→21:10)
--- NOTE | 2019-09-15 11:38 | Infectious Diseases Prog Note ---
Assessment/Plan Assessment/Plan antibiotics ceftriaxone 6.3.20 - remdesivir EUA 6.4.20 - A 1. COVID 19 pneumonia on 2 liters O2, 100 percent saturation 2. e.coli UTI 3. spinal cord injury 4. paraplegia 5. increased LFT P 1. continue ceftriaxone 1 more day 2. d/c remdesivir EUA after todays dose 3. continue isolation 4. will follow up cultures Subjective Constitutional: Denies: fever, chills Respiratory: Denies: shortness of breath, dry cough Gastrointestinal/Abdominal: Reports: nausea, vomiting, diarrhea Musculoskeletal: Denies: pain Allergies: Coded Allergies: PENICILLINS (Verified Allergy, Unknown, 09/11/19) Patient does not remember the reaction or severity, currently tolerates Ceftriaxone IV and is having no allergic reactions Uncoded Allergies: PCN (Allergy, Unknown, 09/10/19) Objective Vital Signs Last 24 Hour Vital Signs Date Time Temp Pulse Resp B/P (MAP) Pulse Ox O2 Delivery O2 Flow Rate FiO2 09/15/19 09:00 Nasal Cannula 2.0 09/15/19 08:00 88 09/15/19 08:00 97.7 74 18 113/63 (80) 100 09/15/19 04:00 100.0 72 17 149/85 (106) 97 09/15/19 04:00 65 09/15/19 00:00 91 09/15/19 00:00 97.9 78 16 132/85 (101) 97 09/14/19 21:00 Nasal Cannula 2.0 09/14/19 20:00 98.1 84 17 136/87 (103) 96 09/14/19 20:00 80 09/14/19 16:00 80 09/14/19 16:00 98.1 98 18 134/87 (103) 95 09/14/19 12:00 81 09/14/19 12:00 98.1 82 18 112/71 (85) 97 Height (Feet): 5 Height (Inches): 7.00 Weight (Pounds): 202 Laboratory Tests Test 09/15/19 04:00 Total Bilirubin 0.4 MG/DL (0.2-1.0) Direct Bilirubin < 0.1 MG/DL (0.0-0.3) Aspartate Amino Transf (AST/SGOT) 73 U/L (15-37) H Alanine Aminotransferase (ALT/SGPT) 111 U/L (12-78) H Alkaline Phosphatase 73 U/L (46-116) Total Protein 7.8 G/DL (6.4-8.2) Albumin 2.6 G/DL (3.4-5.0) L Current Medications Medications (Trade) Dose Ordered Sig/Prasad Route PRN Reason Start Time Stop Time Status Last Admin Dose Admin Acetaminophen (Tylenol) 650 mg Q4H PRN ORAL Mild Pain (Pain Scale 1-3) 09/10/19 21:00 10/10/19 20:59 09/11/19 21:51 Al Hydroxide/Mg Hydroxide (Mylanta) 30 ml Q4H PRN ORAL Constipation 09/10/19 21:00 10/10/19 20:59 Albuterol Sulfate (Proventil MDI) 2 puff Q4H PRN INH Shortness of Breath 09/10/19 21:00 12/09/19 20:59 Ceftriaxone Sodium 1 gm/ Dextrose 55 ml @ 110 mls/hr Q24H IVPB 09/11/19 09:00 09/18/19 08:59 09/15/19 09:05 Guaifenesin/ Dextromethorphan (Robitussin DM Syrup) 10 ml Q4H PRN ORAL For Cough 09/11/19 18:45 12/10/19 18:44 09/14/19 18:07 Heparin Sodium (Porcine) (Heparin 5000 units/ml) 5,000 units EVERY 12 HOURS SUBQ 09/10/19 21:00 10/25/19 20:59 09/15/19 09:06 Ondansetron HCl (Zofran) 4 mg Q6H PRN IVP Nausea & Vomiting 09/15/19 05:30 10/15/19 05:29 Pantoprazole (Protonix) 40 mg DAILY ORAL 09/11/19 09:00 10/11/19 08:59 09/15/19 09:05 Remdesivir 100 mg/ Sodium Chloride 250 ml @ 250 mls/hr Q24H IV 09/12/19 13:00 09/15/19 13:59 09/14/19 12:50 Lucien Pena MD Sep 15, 2019 11:38
[2019-09-15 12:00] VITALS: BP 127/64
[2019-09-15] MEDS: Maintenance Dose:Remdesivir 100mg/NS 230ml x 4 Doses IV SCH (12:44)
[2019-09-15 16:00] VITALS: BP 120/74
[2019-09-15 20:00] VITALS: BP 147/88
[2019-09-15] MEDS: guaiFENesin /DM 10ml syrup ORAL PRN (21:48)
[2019-09-16] VITALS: BP 140/82
[2019-09-16 04:00] VITALS: BP 132/85
[2019-09-16 07:10] LABS: BASOPHILS % (AUTO) 0.5 % (0.0-2.0); EOSINOPHILS % (AUTO) 0.7 % (0.0-3.0); HEMATOCRIT 41.5 % (42.0-52.0); HEMOGLOBIN 14.8 G/DL (14.2-18.0); LYMPHOCYTES % (AUTO) 17.4 % (20.0-45.0); MEAN CORPUSCULAR VOLUME 87 FL (80-99); MONOCYTES % (AUTO) 8.1 % (1.0-10.0); NEUTROPHILS % (AUTO) 73.4 % (45.0-75.0); PLATELET COUNT 441 K/UL (150-450); RED CELL DISTRIBUTION WIDTH 10.9 % (11.6-14.8); WHITE BLOOD COUNT 10.1 K/UL (4.8-10.8)
[2019-09-16 07:40] LABS: ALANINE AMINOTRANSFERASE 82 U/L (12-78); ALBUMIN 2.4 G/DL (3.4-5.0); ALBUMIN/GLOBULIN RATIO 0.5 (1.0-2.7); ALKALINE PHOSPHATASE 72 U/L (46-116); ANION GAP 11 mmol/L (5-15); ASPARTATE AMINO TRANSFERASE 40 U/L (15-37); BILIRUBIN,TOTAL 0.4 MG/DL (0.2-1.0); BLOOD UREA NITROGEN 9 mg/dL (7-18); CALCIUM 8.8 MG/DL (8.5-10.1); CARBON DIOXIDE 26 MMOL/L (21-32); CHLORIDE 100 MMOL/L (98-107); POTASSIUM 3.6 MMOL/L (3.5-5.1); SODIUM 137 MMOL/L (136-145)
[2019-09-16 07:50] LABS: ALANINE AMINOTRANSFERASE 85 U/L (12-78); ALBUMIN 2.4 G/DL (3.4-5.0); ALKALINE PHOSPHATASE 72 U/L (46-116); ASPARTATE AMINO TRANSFERASE 42 U/L (15-37); BILIRUBIN,DIRECT 0.1 MG/DL (0.0-0.3); BILIRUBIN,TOTAL 0.4 MG/DL (0.2-1.0)
[2019-09-16 08:00] VITALS: BP 102/63
[2019-09-16] MEDS: cefTRIAXone 1 GM in D5W 55 ML IVPB SCH (08:27)
[2019-09-16] MEDS: Heparin 5000 units/ml inj SUBQ SCH ×2 (08:28→20:22)
--- NOTE | 2019-09-16 08:39 | General Progress Note ---
Assessment/Plan Assessment/Plan: IMPRESSION: Abnormal chest x-ray + COVID-related pneumonia, fevers, hypoxemia, spinal cord injury. elevated CRP and ferritin PLAN isolation ID noted; repeat swab DVT prophylaxis maintain same monitor as is taper oxygen repeat cxr again DVT prophylaxis impression, plan, and exam edited and reviewed in detail care discussed with RN Subjective Allergies: Coded Allergies: PENICILLINS (Verified Allergy, Unknown, 09/11/19) Patient does not remember the reaction or severity, currently tolerates Ceftriaxone IV and is having no allergic reactions Uncoded Allergies: PCN (Allergy, Unknown, 09/10/19) Subjective care noted o2 needs better Objective Last 24 Hour Vital Signs Date Time Temp Pulse Resp B/P (MAP) Pulse Ox O2 Delivery O2 Flow Rate FiO2 09/16/19 04:00 100.0 84 20 132/85 (101) 95 09/16/19 04:00 86 09/16/19 00:00 106 09/16/19 00:00 99.8 90 18 140/82 (101) 95 09/15/19 21:00 Nasal Cannula 2.0 09/15/19 20:00 79 09/15/19 20:00 100.0 82 18 147/88 (107) 95 09/15/19 16:00 116 09/15/19 16:00 97.4 61 19 120/74 (89) 96 09/15/19 12:00 98.3 84 17 127/64 (85) 98 09/15/19 12:00 81 09/15/19 09:00 Nasal Cannula 2.0 Intake and Output 09/15/19 09/16/19 19:00 07:00 Intake Total 120 ml Output Total 1200 ml 500 ml Balance -1080 ml -500 ml Intake Oral 120 ml Output Urine Total 1200 ml 500 ml # Voids 3 1 # Bowel Movements 2 Laboratory Tests 09/16/19 05:00: White Blood Count 10.1, Red Blood Count 4.80, Hemoglobin 14.8, Hematocrit 41.5L , Mean Corpuscular Volume 87, Mean Corpuscular Hemoglobin 30.7, Mean Corpuscular Hemoglobin Concent 35.5, Red Cell Distribution Width 10.9L, Platelet Count 441, Mean Platelet Volume 5.3L, Neutrophils (%) (Auto) 73.4, Lymphocytes (%) (Auto) 17.4L, Monocytes (%) (Auto) 8.1, Eosinophils (%) (Auto) 0.7, Basophils (%) (Auto) 0.5, Sodium Level 137, Potassium Level 3.6, Chloride Level 100, Carbon Dioxide Level 26, Anion Gap 11, Blood Urea Nitrogen 9, Creatinine 1.0, Estimat Glomerular Filtration Rate > 60, Glucose Level 172H, Calcium Level 8.8, Total Bilirubin 0.4, Direct Bilirubin 0.1, Aspartate Amino Transf (AST/SGOT) 42H, Alanine Aminotransferase (ALT/SGPT) 85H, Alkaline Phosphatase 72, Total Protein 7.5, Albumin 2.4L, Globulin 5.0, Albumin/Globulin Ratio 0.5L Height (Feet): 5 Height (Inches): 7.00 Weight (Pounds): 202 Objective deferred to ANGELES+ Jordan Howell MD Sep 16, 2019 08:39
--- NOTE | 2019-09-16 10:42 | Infectious Diseases Prog Note ---
Assessment/Plan Assessment/Plan antibiotics ceftriaxone 6.3.20 - A 1. COVID 19 pneumonia on 2 liters O2, 92 percent saturation 2. e.coli UTI 3. spinal cord injury 4. paraplegia 5. increased LFT improving P 1. d/c ceftriaxone 1 more day 2. continue isolation 3. will follow up cultures Subjective Constitutional: Denies: fever, chills Respiratory: Denies: shortness of breath, dry cough Gastrointestinal/Abdominal: Denies: nausea, vomiting, diarrhea Musculoskeletal: Denies: pain Allergies: Coded Allergies: PENICILLINS (Verified Allergy, Unknown, 09/11/19) Patient does not remember the reaction or severity, currently tolerates Ceftriaxone IV and is having no allergic reactions Uncoded Allergies: PCN (Allergy, Unknown, 09/10/19) Objective Vital Signs Last 24 Hour Vital Signs Date Time Temp Pulse Resp B/P (MAP) Pulse Ox O2 Delivery O2 Flow Rate FiO2 09/16/19 09:00 Nasal Cannula 2.0 09/16/19 08:00 100.8 113 22 102/63 (76) 92 09/16/19 04:00 100.0 84 20 132/85 (101) 95 09/16/19 04:00 86 09/16/19 00:00 106 09/16/19 00:00 99.8 90 18 140/82 (101) 95 09/15/19 21:00 Nasal Cannula 2.0 09/15/19 20:00 79 09/15/19 20:00 100.0 82 18 147/88 (107) 95 09/15/19 16:00 116 09/15/19 16:00 97.4 61 19 120/74 (89) 96 09/15/19 12:00 98.3 84 17 127/64 (85) 98 09/15/19 12:00 81 Height (Feet): 5 Height (Inches): 7.00 Weight (Pounds): 202 Laboratory Tests Test 09/16/19 05:00 White Blood Count 10.1 K/UL (4.8-10.8) Red Blood Count 4.80 M/UL (4.70-6.10) Hemoglobin 14.8 G/DL (14.2-18.0) Hematocrit 41.5 % (42.0-52.0) L Mean Corpuscular Volume 87 FL (80-99) Mean Corpuscular Hemoglobin 30.7 PG (27.0-31.0) Mean Corpuscular Hemoglobin Concent 35.5 G/DL (32.0-36.0) Red Cell Distribution Width 10.9 % (11.6-14.8) L Platelet Count 441 K/UL (150-450) Mean Platelet Volume 5.3 FL (6.5-10.1) L Neutrophils (%) (Auto) 73.4 % (45.0-75.0) Lymphocytes (%) (Auto) 17.4 % (20.0-45.0) L Monocytes (%) (Auto) 8.1 % (1.0-10.0) Eosinophils (%) (Auto) 0.7 % (0.0-3.0) Basophils (%) (Auto) 0.5 % (0.0-2.0) Sodium Level 137 MMOL/L (136-145) Potassium Level 3.6 MMOL/L (3.5-5.1) Chloride Level 100 MMOL/L (98-107) Carbon Dioxide Level 26 MMOL/L (21-32) Anion Gap 11 mmol/L (5-15) Blood Urea Nitrogen 9 mg/dL (7-18) Creatinine 1.0 MG/DL (0.55-1.30) Estimat Glomerular Filtration Rate > 60 mL/min (>60) Glucose Level 172 MG/DL (74-106) H Calcium Level 8.8 MG/DL (8.5-10.1) Total Bilirubin 0.4 MG/DL (0.2-1.0) Direct Bilirubin 0.1 MG/DL (0.0-0.3) Aspartate Amino Transf (AST/SGOT) 42 U/L (15-37) H Alanine Aminotransferase (ALT/SGPT) 85 U/L (12-78) H Alkaline Phosphatase 72 U/L (46-116) Total Protein 7.5 G/DL (6.4-8.2) Albumin 2.4 G/DL (3.4-5.0) L Globulin 5.0 g/dL Albumin/Globulin Ratio 0.5 (1.0-2.7) L Current Medications Medications (Trade) Dose Ordered Sig/Prsaad Route PRN Reason Start Time Stop Time Status Last Admin Dose Admin Acetaminophen (Tylenol) 650 mg Q4H PRN ORAL Mild Pain (Pain Scale 1-3) 09/10/19 21:00 10/10/19 20:59 09/16/19 09:23 Al Hydroxide/Mg Hydroxide (Mylanta) 30 ml Q4H PRN ORAL Constipation 09/10/19 21:00 10/10/19 20:59 Albuterol Sulfate (Proventil MDI) 2 puff Q4H PRN INH Shortness of Breath 09/10/19 21:00 12/09/19 20:59 Ceftriaxone Sodium 1 gm/ Dextrose 55 ml @ 110 mls/hr Q24H IVPB 09/11/19 09:00 09/16/19 23:59 09/16/19 08:27 Guaifenesin/ Dextromethorphan (Robitussin DM Syrup) 10 ml Q4H PRN ORAL For Cough 09/11/19 18:45 12/10/19 18:44 09/15/19 21:48 Heparin Sodium (Porcine) (Heparin 5000 units/ml) 5,000 units EVERY 12 HOURS SUBQ 09/10/19 21:00 10/25/19 20:59 09/16/19 08:28 Ondansetron HCl (Zofran) 4 mg Q6H PRN IVP Nausea & Vomiting 09/15/19 05:30 10/15/19 05:29 09/15/19 21:09 Pantoprazole (Protonix) 40 mg DAILY ORAL 09/11/19 09:00 10/11/19 08:59 09/16/19 08:27 Lucien Pena MD Sep 16, 2019 10:42
[2019-09-16 12:00] VITALS: BP 125/85
[2019-09-16 16:00] VITALS: BP 120/81
[2019-09-16] MEDS ORDERED: Albuterol 90mcg Inhaler 8gm INH PRN (17:10)
[2019-09-16] MEDS ORDERED: guaiFENesin /DM 10ml syrup ORAL PRN (17:10)
[2019-09-16 20:00] VITALS: BP 144/93
[2019-09-17] VITALS: BP 153/95
[2019-09-17 03:58] VITALS: BP 132/83
[2019-09-17 08:00] VITALS: BP 126/75
[2019-09-17] MEDS: Heparin 5000 units/ml inj SUBQ SCH ×2 (08:36→21:15)
--- NOTE | 2019-09-17 10:59 | Infectious Diseases Prog Note ---
Assessment/Plan Assessment/Plan A 1. COVID19 pneumonia 2. E.coli UTI 3. spinal cord injury 4. paraplegia P 1. Finished ceftriaxone & Remdesivir course 2. continue isolation Subjective ROS Limited/Unobtainable: Yes Constitutional: Denies: fever Respiratory: Reports: no symptoms Allergies: Coded Allergies: PENICILLINS (Verified Allergy, Unknown, 09/11/19) Patient does not remember the reaction or severity, currently tolerates Ceftriaxone IV and is having no allergic reactions Uncoded Allergies: PCN (Allergy, Unknown, 09/10/19) Objective Vital Signs Last 24 Hour Vital Signs Date Time Temp Pulse Resp B/P (MAP) Pulse Ox O2 Delivery O2 Flow Rate FiO2 09/17/19 09:00 Nasal Cannula 2.0 09/17/19 08:00 97.9 86 18 126/75 (92) 96 09/17/19 03:58 98.2 81 22 132/83 (99) 96 09/17/19 00:00 99.1 81 28 153/95 (114) 95 09/16/19 20:36 Nasal Cannula 2.0 09/16/19 20:00 99.0 76 19 144/93 (110) 96 09/16/19 16:00 97.8 78 18 120/81 (94) 97 09/16/19 12:06 64 09/16/19 12:00 96.7 65 18 125/85 (98) 96 Height (Feet): 5 Height (Inches): 7.00 Weight (Pounds): 202 General Appearance: no acute distress HEENT: mucous membranes moist Respiratory/Chest: no respiratory distress, other - oxygen by nasal cannula Cardiovascular: normal rate Abdomen: soft, non tender Extremities: no edema Neurologic/Psychiatric: alert, responsive, other - paraplegia Current Medications Medications (Trade) Dose Ordered Sig/Prasad Route PRN Reason Start Time Stop Time Status Last Admin Dose Admin Acetaminophen (Tylenol) 650 mg Q4H PRN ORAL Mild Pain (Pain Scale 1-3) 09/16/19 17:09 10/16/19 17:08 Al Hydroxide/Mg Hydroxide (Mylanta) 30 ml Q4H PRN ORAL Constipation 09/16/19 17:10 10/16/19 17:09 Albuterol Sulfate (Proventil MDI) 2 puff Q4H PRN INH Shortness of Breath 09/16/19 17:10 12/15/19 17:09 Guaifenesin/ Dextromethorphan (Robitussin DM Syrup) 10 ml Q4H PRN ORAL For Cough 09/16/19 17:10 12/15/19 17:09 09/16/19 22:46 Heparin Sodium (Porcine) (Heparin 5000 units/ml) 5,000 units EVERY 12 HOURS SUBQ 09/16/19 21:00 10/25/19 20:59 09/17/19 08:36 Ondansetron HCl (Zofran) 4 mg Q6H PRN IVP Nausea & Vomiting 09/16/19 17:10 10/16/19 17:09 Pantoprazole (Protonix) 40 mg DAILY ORAL 09/17/19 09:00 10/11/19 08:59 09/17/19 08:35 Albino Sage MD Sep 17, 2019 10:59
--- NOTE | 2019-09-17 11:20 | Diagnostic Imaging Report ---
Indication: Shortness of breath Technique: One view of the chest Comparison: 09/14/2019 Findings: Bilateral patchy and nodular interstitial and airspace opacities are again demonstrated bilaterally, fairly diffuse but with a mid and lower lung predominance. This appears unchanged from the prior study. Spinal fusion hardware is again noted. Impression: Unchanged bilateral infiltrates, over 3 days.
[2019-09-17 12:00] VITALS: BP 134/85
--- NOTE | 2019-09-17 12:58 | General Progress Note ---
Assessment/Plan Assessment/Plan: IMPRESSION: Abnormal chest x-ray + COVID-related pneumonia, fevers, hypoxemia, spinal cord injury. elevated CRP and ferritin PLAN isolation DVT prophylaxis maintain same monitor as is taper oxygen repeat cxr for change impression, plan, and exam edited and reviewed in detail care discussed with RN Subjective Allergies: Coded Allergies: PENICILLINS (Verified Allergy, Unknown, 09/11/19) Patient does not remember the reaction or severity, currently tolerates Ceftriaxone IV and is having no allergic reactions Uncoded Allergies: PCN (Allergy, Unknown, 09/10/19) Subjective care noted o2 needs better still COVID + Objective Last 24 Hour Vital Signs Date Time Temp Pulse Resp B/P (MAP) Pulse Ox O2 Delivery O2 Flow Rate FiO2 09/17/19 09:00 Nasal Cannula 2.0 09/17/19 08:00 97.9 86 18 126/75 (92) 96 09/17/19 03:58 98.2 81 22 132/83 (99) 96 09/17/19 00:00 99.1 81 28 153/95 (114) 95 09/16/19 20:36 Nasal Cannula 2.0 09/16/19 20:00 99.0 76 19 144/93 (110) 96 09/16/19 16:00 97.8 78 18 120/81 (94) 97 Intake and Output 09/16/19 09/17/19 19:00 07:00 Intake Total 600 ml 360 ml Output Total 950 ml Balance 600 ml -590 ml Intake Oral 600 ml Other 360 ml Output Urine Total 950 ml # Bowel Movements 1 Height (Feet): 5 Height (Inches): 7.00 Weight (Pounds): 202 Objective deferred to COVID+ Jordan Howell MD Sep 17, 2019 12:58
[2019-09-17 16:00] VITALS: BP 122/73
[2019-09-17 20:00] VITALS: BP 115/68
[2019-09-18] VITALS: BP 104/64
[2019-09-18 04:00] VITALS: BP 117/73
[2019-09-18 08:10] VITALS: BP 111/76
[2019-09-18] MEDS: Heparin 5000 units/ml inj SUBQ SCH ×2 (08:37→21:09)
--- NOTE | 2019-09-18 08:45 | General Progress Note ---
Assessment/Plan Assessment/Plan: IMPRESSION: Abnormal chest x-ray + COVID-related pneumonia, fevers, hypoxemia, spinal cord injury. elevated CRP and ferritin PLAN isolation DVT prophylaxis maintain same monitor as is taper oxygen repeat cxr for change in am impression, plan, and exam edited and reviewed in detail care discussed with RN Subjective Allergies: Coded Allergies: PENICILLINS (Verified Allergy, Unknown, 09/11/19) Patient does not remember the reaction or severity, currently tolerates Ceftriaxone IV and is having no allergic reactions Uncoded Allergies: PCN (Allergy, Unknown, 09/10/19) Subjective care noted o2 needs better still COVID + Objective Last 24 Hour Vital Signs Date Time Temp Pulse Resp B/P (MAP) Pulse Ox O2 Delivery O2 Flow Rate FiO2 09/18/19 04:00 97.9 87 22 117/73 (88) 96 09/18/19 00:00 98.2 92 24 104/64 (77) 98 09/17/19 21:00 Nasal Cannula 2.0 09/17/19 20:00 98.1 116 14 115/68 (84) 95 09/17/19 16:00 98.2 75 19 122/73 (89) 96 09/17/19 12:00 98.2 71 19 134/85 (101) 97 09/17/19 09:00 Nasal Cannula 2.0 Intake and Output 09/17/19 09/18/19 19:00 07:00 Intake Total 550 ml 360 ml Output Total 900 ml 600 ml Balance -350 ml -240 ml Intake Oral 550 ml Other 360 ml Output Urine Total 900 ml 600 ml Height (Feet): 5 Height (Inches): 7.00 Weight (Pounds): 202 Objective deferred to COVID+ Jordan Howell MD Sep 18, 2019 08:45
[2019-09-18 11:48] VITALS: BP 115/71
[2019-09-18 16:05] VITALS: BP 119/65
--- NOTE | 2019-09-18 16:42 | Infectious Diseases Prog Note ---
Assessment/Plan Assessment/Plan A 1. COVID19 pneumonia, Positive 09/09-09/15 2. E.coli UTI 3. spinal cord injury 4. paraplegia P 1. Finished ceftriaxone & Remdesivir course 2. continue isolation Subjective ROS Limited/Unobtainable: Yes Constitutional: Reports: no symptoms Respiratory: Reports: dry cough Cardiovascular: Reports: no symptoms Gastrointestinal/Abdominal: Reports: no symptoms Allergies: Coded Allergies: PENICILLINS (Verified Allergy, Unknown, 09/11/19) Patient does not remember the reaction or severity, currently tolerates Ceftriaxone IV and is having no allergic reactions Uncoded Allergies: PCN (Allergy, Unknown, 09/10/19) Objective Vital Signs Last 24 Hour Vital Signs Date Time Temp Pulse Resp B/P (MAP) Pulse Ox O2 Delivery O2 Flow Rate FiO2 09/18/19 16:05 98.1 73 17 119/65 (83) 94 09/18/19 11:48 97.7 75 18 115/71 (86) 99 09/18/19 08:35 Nasal Cannula 2.0 09/18/19 08:10 97.9 96 19 111/76 (88) 99 09/18/19 04:00 97.9 87 22 117/73 (88) 96 09/18/19 00:00 98.2 92 24 104/64 (77) 98 09/17/19 21:00 Nasal Cannula 2.0 09/17/19 20:00 98.1 116 14 115/68 (84) 95 Height (Feet): 5 Height (Inches): 7.00 Weight (Pounds): 202 General Appearance: no acute distress HEENT: mucous membranes moist Respiratory/Chest: lungs clear Cardiovascular: normal rate Abdomen: soft, non tender Extremities: no edema Neurologic/Psychiatric: alert, oriented x 3, responsive Microbiology Date/Time Source Procedure Growth Status 09/16/19 12:45 Nasopharynx Coronavirus COVID-19 PCR ([facility]) - Final Complete Current Medications Medications (Trade) Dose Ordered Sig/Prasad Route PRN Reason Start Time Stop Time Status Last Admin Dose Admin Acetaminophen (Tylenol) 650 mg Q4H PRN ORAL Mild Pain (Pain Scale 1-3) 09/16/19 17:09 10/16/19 17:08 Al Hydroxide/Mg Hydroxide (Mylanta) 30 ml Q4H PRN ORAL Constipation 09/16/19 17:10 10/16/19 17:09 Albuterol Sulfate (Proventil MDI) 2 puff Q4H PRN INH Shortness of Breath 09/16/19 17:10 12/15/19 17:09 Guaifenesin/ Dextromethorphan (Robitussin DM Syrup) 10 ml Q4H PRN ORAL For Cough 09/16/19 17:10 12/15/19 17:09 09/16/19 22:46 Heparin Sodium (Porcine) (Heparin 5000 units/ml) 5,000 units EVERY 12 HOURS SUBQ 09/16/19 21:00 10/25/19 20:59 09/18/19 08:37 Ondansetron HCl (Zofran) 4 mg Q6H PRN IVP Nausea & Vomiting 09/16/19 17:10 10/16/19 17:09 Pantoprazole (Protonix) 40 mg DAILY ORAL 09/17/19 09:00 10/11/19 08:59 09/18/19 08:36 Albino Sage MD Sep 18, 2019 16:42
[2019-09-18 20:00] VITALS: BP 107/76
[2019-09-19] VITALS: BP 114/66
[2019-09-19 04:00] VITALS: BP 110/70
[2019-09-19 08:00] VITALS: BP 113/75
[2019-09-19] MEDS: Heparin 5000 units/ml inj SUBQ SCH ×2 (08:45→21:20)
--- NOTE | 2019-09-19 11:10 | Infectious Diseases Prog Note ---
Assessment/Plan Assessment/Plan antibiotics A 1. COVID 19 pneumonia on 2 liters O2, 99 percent saturation s/p remdesivir EUA 2. e.coli UTI s/p rx 3. spinal cord injury 4. paraplegia 5. increased LFT improving P 1. continue off antibiotics 2. continue isolation 3. will follow up cultures Subjective Constitutional: Denies: fever, chills Respiratory: Reports: shortness of breath - decreased; Denies: dry cough Gastrointestinal/Abdominal: Denies: nausea, vomiting, diarrhea Musculoskeletal: Denies: pain Allergies: Coded Allergies: PENICILLINS (Verified Allergy, Unknown, 09/11/19) Patient does not remember the reaction or severity, currently tolerates Ceftriaxone IV and is having no allergic reactions Uncoded Allergies: PCN (Allergy, Unknown, 09/10/19) Objective Vital Signs Last 24 Hour Vital Signs Date Time Temp Pulse Resp B/P (MAP) Pulse Ox O2 Delivery O2 Flow Rate FiO2 09/19/19 09:00 Nasal Cannula 2.0 09/19/19 08:00 98.8 99 20 113/75 (88) 95 09/19/19 04:00 98.1 71 18 110/70 (83) 95 09/19/19 00:00 97.3 68 20 114/66 (82) 96 09/18/19 21:00 Nasal Cannula 2.0 09/18/19 20:00 98.8 84 20 107/76 (86) 93 09/18/19 16:05 98.1 73 17 119/65 (83) 94 09/18/19 11:48 97.7 75 18 115/71 (86) 99 Height (Feet): 5 Height (Inches): 7.00 Weight (Pounds): 202 Microbiology Date/Time Source Procedure Growth Status 09/16/19 12:45 Nasopharynx Coronavirus COVID-19 PCR ([facility]) - Final Complete Current Medications Medications (Trade) Dose Ordered Sig/Prasad Route PRN Reason Start Time Stop Time Status Last Admin Dose Admin Acetaminophen (Tylenol) 650 mg Q4H PRN ORAL Mild Pain (Pain Scale 1-3) 09/16/19 17:09 10/16/19 17:08 Al Hydroxide/Mg Hydroxide (Mylanta) 30 ml Q4H PRN ORAL Constipation 09/16/19 17:10 10/16/19 17:09 Albuterol Sulfate (Proventil MDI) 2 puff Q4H PRN INH Shortness of Breath 09/16/19 17:10 12/15/19 17:09 Guaifenesin/ Dextromethorphan (Robitussin DM Syrup) 10 ml Q4H PRN ORAL For Cough 09/16/19 17:10 12/15/19 17:09 09/16/19 22:46 Heparin Sodium (Porcine) (Heparin 5000 units/ml) 5,000 units EVERY 12 HOURS SUBQ 09/16/19 21:00 10/25/19 20:59 09/19/19 08:45 Ondansetron HCl (Zofran) 4 mg Q6H PRN IVP Nausea & Vomiting 09/16/19 17:10 10/16/19 17:09 Pantoprazole (Protonix) 40 mg DAILY ORAL 09/17/19 09:00 10/11/19 08:59 09/19/19 08:44 Lcuien Pena MD Sep 19, 2019 11:10
[2019-09-19 12:00] VITALS: BP 124/84
[2019-09-19 16:00] VITALS: BP 111/74
[2019-09-19 20:00] VITALS: BP 120/72
[2019-09-20] VITALS: BP 123/68
[2019-09-20 04:00] VITALS: BP 115/79
[2019-09-20 08:00] VITALS: BP 106/73
[2019-09-20] MEDS: Heparin 5000 units/ml inj SUBQ SCH ×2 (09:24→20:29)
[2019-09-20 12:00] VITALS: BP 102/70
[2019-09-20 16:00] VITALS: BP 118/80
--- NOTE | 2019-09-20 17:16 | Pulmonology Progress Note ---
Subjective ROS Limited/Unobtainable: No Constitutional: Denies: fever, chills Gastrointestinal/Abdominal: Denies: nausea, vomiting, diarrhea Musculoskeletal: Denies: pain Allergies: Coded Allergies: PENICILLINS (Verified Allergy, Unknown, 09/11/19) Patient does not remember the reaction or severity, currently tolerates Ceftriaxone IV and is having no allergic reactions Uncoded Allergies: PCN (Allergy, Unknown, 09/10/19) Objective Last 24 Hour Vital Signs Date Time Temp Pulse Resp B/P (MAP) Pulse Ox O2 Delivery O2 Flow Rate FiO2 09/20/19 08:00 97.9 91 20 106/73 (84) 92 09/20/19 04:00 97.9 69 18 115/79 (91) 96 09/20/19 00:00 97.8 70 18 123/68 (86) 98 09/19/19 21:00 Nasal Cannula 1.0 09/19/19 20:00 97.2 69 18 120/72 (88) 97 Intake and Output 09/19/19 09/20/19 19:00 07:00 Intake Total 1080 ml Output Total 600 ml 1100 ml Balance 480 ml -1100 ml Intake Oral 1080 ml Output Urine Total 600 ml 1100 ml # Voids 1 Current Medications Medications (Trade) Dose Ordered Sig/Prasad Route PRN Reason Start Time Stop Time Status Last Admin Dose Admin Acetaminophen (Tylenol) 650 mg Q4H PRN ORAL Mild Pain (Pain Scale 1-3) 09/16/19 17:09 10/16/19 17:08 Al Hydroxide/Mg Hydroxide (Mylanta) 30 ml Q4H PRN ORAL Constipation 09/16/19 17:10 10/16/19 17:09 Albuterol Sulfate (Proventil MDI) 2 puff Q4H PRN INH Shortness of Breath 09/16/19 17:10 12/15/19 17:09 Guaifenesin/ Dextromethorphan (Robitussin DM Syrup) 10 ml Q4H PRN ORAL For Cough 09/16/19 17:10 12/15/19 17:09 09/16/19 22:46 Heparin Sodium (Porcine) (Heparin 5000 units/ml) 5,000 units EVERY 12 HOURS SUBQ 09/16/19 21:00 10/25/19 20:59 09/20/19 09:24 Ondansetron HCl (Zofran) 4 mg Q6H PRN IVP Nausea & Vomiting 09/16/19 17:10 10/16/19 17:09 Pantoprazole (Protonix) 40 mg DAILY ORAL 09/17/19 09:00 10/11/19 08:59 09/20/19 09:24 Assessment/Plan Assessment/Plan Pulmonary Progress Note Assessment/Plan: IMPRESSION: Abnormal chest x-ray + COVID-related pneumonia, fevers, hypoxemia, spinal cord injury. elevated CRP and ferritin PLAN isolation DVT prophylaxis maintain same monitor as is taper oxygen repeat cxr for change in am impression, plan, and exam edited and reviewed in detail care discussed with RN Subjective Allergies: Coded Allergies: PENICILLINS (Verified Allergy, Unknown, 09/11/19) Patient does not remember the reaction or severity, currently tolerates Ceftriaxone IV and is having no allergic reactions Uncoded Allergies: PCN (Allergy, Unknown, 09/10/19) Subjective care noted o2 needs better still COVID + Objective Vital Signs Noted Height (Feet): 5 Height (Inches): 7.00 Weight (Pounds): 202 Objective deferred to COVID+ Homero Chen MD Sep 20, 2019 17:16
[2019-09-20 20:00] VITALS: BP 129/78
[2019-09-21] VITALS: BP 122/76
[2019-09-21 04:00] VITALS: BP 124/72
[2019-09-21 05:53] LABS: BASOPHILS % (AUTO) 1.5 % (0.0-2.0); EOSINOPHILS % (AUTO) 1.6 % (0.0-3.0); HEMATOCRIT 44.5 % (42.0-52.0); HEMOGLOBIN 14.2 G/DL (14.2-18.0); LYMPHOCYTES % (AUTO) 34.7 % (20.0-45.0); MEAN CORPUSCULAR VOLUME 97 FL (80-99); MONOCYTES % (AUTO) 7.8 % (1.0-10.0); NEUTROPHILS % (AUTO) 54.4 % (45.0-75.0); PLATELET COUNT 428 K/UL (150-450); RED BLOOD COUNT 4.61 M/UL (4.70-6.10); RED CELL DISTRIBUTION WIDTH 12.1 % (11.6-14.8); WHITE BLOOD COUNT 5.7 K/UL (4.8-10.8)
[2019-09-21 07:04] LABS: ALANINE AMINOTRANSFERASE 85 U/L (12-78); ALBUMIN 2.8 G/DL (3.4-5.0); ALBUMIN/GLOBULIN RATIO 0.6 (1.0-2.7); ALKALINE PHOSPHATASE 64 U/L (46-116); ANION GAP 12 mmol/L (5-15); ASPARTATE AMINO TRANSFERASE 55 U/L (15-37); BILIRUBIN,TOTAL 0.4 MG/DL (0.2-1.0); BLOOD UREA NITROGEN 14 mg/dL (7-18); CALCIUM 8.7 MG/DL (8.5-10.1); CARBON DIOXIDE 25 MMOL/L (21-32); CHLORIDE 102 MMOL/L (98-107); CREATININE 0.9 MG/DL (0.55-1.30); POTASSIUM 4.4 MMOL/L (3.5-5.1); SODIUM 139 MMOL/L (136-145)
[2019-09-21 08:00] VITALS: BP 113/70
[2019-09-21] MEDS: Heparin 5000 units/ml inj SUBQ SCH ×2 (08:19→21:06)
[2019-09-21 12:00] VITALS: BP 114/73
--- NOTE | 2019-09-21 14:28 | Infectious Diseases Prog Note ---
Assessment/Plan Assessment/Plan A 1. COVID19 pneumonia, Positive 09/09-09/15 2. E.coli UTI treated 3. spinal cord injury 4. paraplegia P 1. Finished ceftriaxone & Remdesivir course 2. continue isolation Subjective ROS Limited/Unobtainable: Yes Constitutional: Denies: fever Allergies: Coded Allergies: PENICILLINS (Verified Allergy, Unknown, 09/11/19) Patient does not remember the reaction or severity, currently tolerates Ceftriaxone IV and is having no allergic reactions Uncoded Allergies: PCN (Allergy, Unknown, 09/10/19) Objective Vital Signs Last 24 Hour Vital Signs Date Time Temp Pulse Resp B/P (MAP) Pulse Ox O2 Delivery O2 Flow Rate FiO2 09/21/19 12:00 98.7 77 18 114/73 (87) 96 09/21/19 09:00 Room Air 09/21/19 08:00 97.4 89 18 113/70 (84) 97 09/21/19 04:00 97.7 77 20 124/72 (89) 96 09/21/19 00:00 97.5 75 18 122/76 (91) 98 09/20/19 21:00 Room Air 09/20/19 20:00 97.7 78 20 129/78 (95) 94 09/20/19 16:00 98.4 77 19 118/80 (93) 94 Height (Feet): 5 Height (Inches): 7.00 Weight (Pounds): 202 General Appearance: no acute distress HEENT: mucous membranes moist Respiratory/Chest: other - oxygen by nasal cannula Cardiovascular: normal rate Abdomen: soft, non tender Extremities: no edema Neurologic/Psychiatric: other - sleeping Laboratory Tests Test 09/21/19 04:30 White Blood Count 5.7 K/UL (4.8-10.8) Red Blood Count 4.61 M/UL (4.70-6.10) L Hemoglobin 14.2 G/DL (14.2-18.0) Hematocrit 44.5 % (42.0-52.0) Mean Corpuscular Volume 97 FL (80-99) Mean Corpuscular Hemoglobin 30.9 PG (27.0-31.0) Mean Corpuscular Hemoglobin Concent 32.0 G/DL (32.0-36.0) Red Cell Distribution Width 12.1 % (11.6-14.8) Platelet Count 428 K/UL (150-450) Mean Platelet Volume 6.5 FL (6.5-10.1) Neutrophils (%) (Auto) 54.4 % (45.0-75.0) Lymphocytes (%) (Auto) 34.7 % (20.0-45.0) Monocytes (%) (Auto) 7.8 % (1.0-10.0) Eosinophils (%) (Auto) 1.6 % (0.0-3.0) Basophils (%) (Auto) 1.5 % (0.0-2.0) Sodium Level 139 MMOL/L (136-145) Potassium Level 4.4 MMOL/L (3.5-5.1) Chloride Level 102 MMOL/L (98-107) Carbon Dioxide Level 25 MMOL/L (21-32) Anion Gap 12 mmol/L (5-15) Blood Urea Nitrogen 14 mg/dL (7-18) Creatinine 0.9 MG/DL (0.55-1.30) Estimat Glomerular Filtration Rate > 60 mL/min (>60) Glucose Level 132 MG/DL (74-106) H Calcium Level 8.7 MG/DL (8.5-10.1) Total Bilirubin 0.4 MG/DL (0.2-1.0) Aspartate Amino Transf (AST/SGOT) 55 U/L (15-37) H Alanine Aminotransferase (ALT/SGPT) 85 U/L (12-78) H Alkaline Phosphatase 64 U/L (46-116) Total Protein 7.5 G/DL (6.4-8.2) Albumin 2.8 G/DL (3.4-5.0) L Globulin 4.7 g/dL Albumin/Globulin Ratio 0.6 (1.0-2.7) L Current Medications Medications (Trade) Dose Ordered Sig/Prasad Route PRN Reason Start Time Stop Time Status Last Admin Dose Admin Acetaminophen (Tylenol) 650 mg Q4H PRN ORAL Mild Pain (Pain Scale 1-3) 09/16/19 17:09 10/16/19 17:08 Al Hydroxide/Mg Hydroxide (Mylanta) 30 ml Q4H PRN ORAL Constipation 09/16/19 17:10 10/16/19 17:09 Albuterol Sulfate (Proventil MDI) 2 puff Q4H PRN INH Shortness of Breath 09/16/19 17:10 12/15/19 17:09 Guaifenesin/ Dextromethorphan (Robitussin DM Syrup) 10 ml Q4H PRN ORAL For Cough 09/16/19 17:10 12/15/19 17:09 09/16/19 22:46 Heparin Sodium (Porcine) (Heparin 5000 units/ml) 5,000 units EVERY 12 HOURS SUBQ 09/16/19 21:00 10/25/19 20:59 09/21/19 08:19 Ondansetron HCl (Zofran) 4 mg Q6H PRN IVP Nausea & Vomiting 09/16/19 17:10 10/16/19 17:09 Pantoprazole (Protonix) 40 mg DAILY ORAL 09/17/19 09:00 10/11/19 08:59 09/21/19 08:18 Albino Sage MD Sep 21, 2019 14:28
[2019-09-21 16:00] VITALS: BP 103/72
--- NOTE | 2019-09-21 17:18 | Pulmonology Progress Note ---
Subjective ROS Limited/Unobtainable: No Constitutional: Denies: fever Gastrointestinal/Abdominal: Denies: nausea, vomiting, diarrhea Musculoskeletal: Denies: pain Allergies: Coded Allergies: PENICILLINS (Verified Allergy, Unknown, 09/11/19) Patient does not remember the reaction or severity, currently tolerates Ceftriaxone IV and is having no allergic reactions Uncoded Allergies: PCN (Allergy, Unknown, 09/10/19) Objective Last 24 Hour Vital Signs Date Time Temp Pulse Resp B/P (MAP) Pulse Ox O2 Delivery O2 Flow Rate FiO2 09/21/19 16:00 98.2 79 18 103/72 (82) 94 09/21/19 12:00 98.7 77 18 114/73 (87) 96 09/21/19 09:00 Room Air 09/21/19 08:00 97.4 89 18 113/70 (84) 97 09/21/19 04:00 97.7 77 20 124/72 (89) 96 09/21/19 00:00 97.5 75 18 122/76 (91) 98 09/20/19 21:00 Room Air 09/20/19 20:00 97.7 78 20 129/78 (95) 94 Intake and Output 09/20/19 09/21/19 19:00 07:00 Intake Total 900 ml 1140 ml Output Total 1000 ml 1350 ml Balance -100 ml -210 ml Intake Oral 900 ml 1140 ml Output Urine Total 1000 ml 1350 ml Laboratory Tests 09/21/19 04:30: White Blood Count 5.7, Red Blood Count 4.61L, Hemoglobin 14.2, Hematocrit 44.5, Mean Corpuscular Volume 97, Mean Corpuscular Hemoglobin 30.9, Mean Corpuscular Hemoglobin Concent 32.0, Red Cell Distribution Width 12.1, Platelet Count 428, Mean Platelet Volume 6.5, Neutrophils (%) (Auto) 54.4, Lymphocytes (%) (Auto) 34.7, Monocytes (%) (Auto) 7.8, Eosinophils (%) (Auto) 1.6, Basophils (%) (Auto ) 1.5, Sodium Level 139, Potassium Level 4.4, Chloride Level 102, Carbon Dioxide Level 25, Anion Gap 12, Blood Urea Nitrogen 14, Creatinine 0.9, Estimat Glomerular Filtration Rate > 60, Glucose Level 132H, Calcium Level 8.7, Total Bilirubin 0.4, Aspartate Amino Transf (AST/SGOT) 55H, Alanine Aminotransferase ( ALT/SGPT) 85H, Alkaline Phosphatase 64, Total Protein 7.5, Albumin 2.8L, Globulin 4.7, Albumin/Globulin Ratio 0.6L Current Medications Medications (Trade) Dose Ordered Sig/Prasad Route PRN Reason Start Time Stop Time Status Last Admin Dose Admin Acetaminophen (Tylenol) 650 mg Q4H PRN ORAL Mild Pain (Pain Scale 1-3) 09/16/19 17:09 10/16/19 17:08 Al Hydroxide/Mg Hydroxide (Mylanta) 30 ml Q4H PRN ORAL Constipation 09/16/19 17:10 10/16/19 17:09 Albuterol Sulfate (Proventil MDI) 2 puff Q4H PRN INH Shortness of Breath 09/16/19 17:10 12/15/19 17:09 Guaifenesin/ Dextromethorphan (Robitussin DM Syrup) 10 ml Q4H PRN ORAL For Cough 09/16/19 17:10 12/15/19 17:09 09/16/19 22:46 Heparin Sodium (Porcine) (Heparin 5000 units/ml) 5,000 units EVERY 12 HOURS SUBQ 09/16/19 21:00 10/25/19 20:59 09/21/19 08:19 Ondansetron HCl (Zofran) 4 mg Q6H PRN IVP Nausea & Vomiting 09/16/19 17:10 10/16/19 17:09 Pantoprazole (Protonix) 40 mg DAILY ORAL 09/17/19 09:00 10/11/19 08:59 09/21/19 08:18 Assessment/Plan Assessment/Plan Pulmonary Progress Note Assessment/Plan: IMPRESSION: Abnormal chest x-ray + COVID-related pneumonia, fevers, hypoxemia, spinal cord injury. elevated CRP and ferritin cxr persistent infiltrates PLAN isolation DVT prophylaxis maintain same monitor as is taper oxygen repeat cxr prn impression, plan, and exam edited and reviewed in detail care discussed with RN Subjective Allergies: Coded Allergies: PENICILLINS (Verified Allergy, Unknown, 09/11/19) Patient does not remember the reaction or severity, currently tolerates Ceftriaxone IV and is having no allergic reactions Uncoded Allergies: PCN (Allergy, Unknown, 09/10/19) Subjective care noted o2 needs better still COVID + Objective Vital Signs Noted Height (Feet): 5 Height (Inches): 7.00 Weight (Pounds): 202 Objective deferred to COVID+ Homero Chen MD Sep 21, 2019 17:18
[2019-09-21 20:00] VITALS: BP 109/69
[2019-09-22] VITALS: BP 109/73
[2019-09-22 04:00] VITALS: BP 115/77
[2019-09-22 08:00] VITALS: BP 112/73
--- NOTE | 2019-09-22 08:30 | General Progress Note ---
Assessment/Plan Assessment/Plan: IMPRESSION: Abnormal chest x-ray + COVID-related pneumonia, fevers, hypoxemia, spinal cord injury. elevated CRP and ferritin PLAN isolation DVT prophylaxis maintain same monitor as is off oxygen repeat cxr dc planning impression, plan, and exam edited and reviewed in detail care discussed with RN Subjective Allergies: Coded Allergies: PENICILLINS (Verified Allergy, Unknown, 09/11/19) Patient does not remember the reaction or severity, currently tolerates Ceftriaxone IV and is having no allergic reactions Uncoded Allergies: PCN (Allergy, Unknown, 09/10/19) Subjective care noted o2 off still COVID + Objective Last 24 Hour Vital Signs Date Time Temp Pulse Resp B/P (MAP) Pulse Ox O2 Delivery O2 Flow Rate FiO2 09/22/19 04:00 98.6 90 20 115/77 (90) 99 09/22/19 00:00 98.4 78 18 109/73 (85) 96 09/21/19 21:00 Room Air 09/21/19 20:00 98.2 75 18 109/69 (82) 94 09/21/19 16:00 98.2 79 18 103/72 (82) 94 09/21/19 12:00 98.7 77 18 114/73 (87) 96 09/21/19 09:00 Room Air Intake and Output 09/21/19 09/22/19 19:00 07:00 Intake Total 360 ml Output Total 1200 ml 500 ml Balance -840 ml -500 ml Intake Oral 360 ml Output Urine Total 1200 ml 500 ml # Voids 1 Height (Feet): 5 Height (Inches): 7.00 Weight (Pounds): 202 Objective deferred to COVID+ Jordan Howell MD Sep 22, 2019 08:30
[2019-09-22] MEDS: Heparin 5000 units/ml inj SUBQ SCH ×2 (08:52→21:14)
--- NOTE | 2019-09-22 10:22 | Diagnostic Imaging Report ---
Procedure: XRAY Chest 1v Reason for study: Shortness of breath. Comparison films: 09/17/2019. FINDINGS: A single one view chest is obtained. Vascularity is normal. Bilateral infiltrates again noted. There is perhaps slightly improved aeration of the left lung. Cardiac and mediastinal silhouette are within normal limits. CP angles are sharp. The bony thorax appear unremarkable. IMPRESSION: Slightly improved aeration left lung.
--- NOTE | 2019-09-22 11:19 | Infectious Diseases Prog Note ---
Assessment/Plan Assessment/Plan antibiotics : none A 1. COVID 19 pneumonia on room air, O2 93 percent saturation s/p remdesivir EUA 2. e.coli UTI s/p rx 3. spinal cord injury 4. paraplegia 5. increased LFT improving P 1. continue off antibiotics 2. continue isolation 3. will follow up cultures Subjective Constitutional: Denies: fever, chills Respiratory: Reports: shortness of breath - decreased, dry cough - mild Allergies: Coded Allergies: PENICILLINS (Verified Allergy, Unknown, 09/11/19) Patient does not remember the reaction or severity, currently tolerates Ceftriaxone IV and is having no allergic reactions Uncoded Allergies: PCN (Allergy, Unknown, 09/10/19) Objective Vital Signs Last 24 Hour Vital Signs Date Time Temp Pulse Resp B/P (MAP) Pulse Ox O2 Delivery O2 Flow Rate FiO2 09/22/19 08:00 97.9 105 18 112/73 (86) 93 09/22/19 04:00 98.6 90 20 115/77 (90) 99 09/22/19 00:00 98.4 78 18 109/73 (85) 96 09/21/19 21:00 Room Air 09/21/19 20:00 98.2 75 18 109/69 (82) 94 09/21/19 16:00 98.2 79 18 103/72 (82) 94 09/21/19 12:00 98.7 77 18 114/73 (87) 96 Height (Feet): 5 Height (Inches): 7.00 Weight (Pounds): 202 Current Medications Medications (Trade) Dose Ordered Sig/Prasad Route PRN Reason Start Time Stop Time Status Last Admin Dose Admin Acetaminophen (Tylenol) 650 mg Q4H PRN ORAL Mild Pain (Pain Scale 1-3) 09/16/19 17:09 10/16/19 17:08 Al Hydroxide/Mg Hydroxide (Mylanta) 30 ml Q4H PRN ORAL Constipation 09/16/19 17:10 10/16/19 17:09 Albuterol Sulfate (Proventil MDI) 2 puff Q4H PRN INH Shortness of Breath 09/16/19 17:10 12/15/19 17:09 Guaifenesin/ Dextromethorphan (Robitussin DM Syrup) 10 ml Q4H PRN ORAL For Cough 09/16/19 17:10 12/15/19 17:09 09/16/19 22:46 Heparin Sodium (Porcine) (Heparin 5000 units/ml) 5,000 units EVERY 12 HOURS SUBQ 09/16/19 21:00 10/25/19 20:59 09/22/19 08:52 Ondansetron HCl (Zofran) 4 mg Q6H PRN IVP Nausea & Vomiting 09/16/19 17:10 10/16/19 17:09 Pantoprazole (Protonix) 40 mg DAILY ORAL 09/17/19 09:00 10/11/19 08:59 09/22/19 08:50 Lucien Pena MD Sep 22, 2019 11:19
[2019-09-22 12:00] VITALS: BP 115/77
[2019-09-22 16:00] VITALS: BP 108/70
[2019-09-22 20:00] VITALS: BP 113/73
[2019-09-23] VITALS: BP 131/69
[2019-09-23 04:00] VITALS: BP_SYST 113; BP_SYST 131; BP_DIAS 69; BP_DIAS 70
[2019-09-23 08:00] VITALS: BP 114/70
[2019-09-23] MEDS: Heparin 5000 units/ml inj SUBQ SCH (08:26)
--- NOTE | 2019-09-23 08:53 | General Progress Note ---
Assessment/Plan Assessment/Plan: IMPRESSION: Abnormal chest x-ray + COVID-related pneumonia, fevers, hypoxemia, spinal cord injury. elevated CRP and ferritin PLAN isolation DVT prophylaxis maintain same monitor as is off oxygen repeat cxr with clearing dc planning to home if ok with ID impression, plan, and exam edited and reviewed in detail care discussed with RN Subjective Allergies: Coded Allergies: PENICILLINS (Verified Allergy, Unknown, 09/11/19) Patient does not remember the reaction or severity, currently tolerates Ceftriaxone IV and is having no allergic reactions Uncoded Allergies: PCN (Allergy, Unknown, 09/10/19) Subjective care noted o2 off still COVID + Objective Last 24 Hour Vital Signs Date Time Temp Pulse Resp B/P (MAP) Pulse Ox O2 Delivery O2 Flow Rate FiO2 09/23/19 08:00 97.5 89 22 114/70 (85) 93 09/23/19 04:00 97.5 89 22 113/70 (84) 93 09/23/19 00:00 98.1 80 22 131/69 (89) 96 09/22/19 21:00 Room Air 09/22/19 20:00 98.2 87 20 113/73 (86) 95 09/22/19 16:00 97.9 91 18 108/70 (83) 95 09/22/19 12:00 97.9 87 18 115/77 (90) 94 09/22/19 09:00 Room Air Intake and Output 09/22/19 09/23/19 19:00 07:00 Intake Total 840 ml 400 ml Output Total 700 ml 700 ml Balance 140 ml -300 ml Intake Oral 840 ml Other 400 ml Output Urine Total 700 ml 700 ml # Bowel Movements 1 Height (Feet): 5 Height (Inches): 7.00 Weight (Pounds): 202 Objective deferred to IESHAID+ Jordan Howell MD Sep 23, 2019 08:53
--- NOTE | 2019-09-23 11:04 | Infectious Diseases Prog Note ---
Assessment/Plan Assessment/Plan antibiotics : none A 1. COVID 19 pneumonia improving s/p rx on room air, O2 93 percent saturation s/p remdesivir EUA 2. e.coli UTI s/p rx 3. spinal cord injury 4. paraplegia 5. increased LFT improving P 1. continue off antibiotics 2. continue isolation 3. will follow up cultures 4. okay for discharge from ID perspective Subjective Constitutional: Denies: fever, chills Respiratory: Denies: shortness of breath, dry cough Gastrointestinal/Abdominal: Denies: nausea, vomiting, diarrhea Musculoskeletal: Denies: pain Allergies: Coded Allergies: PENICILLINS (Verified Allergy, Unknown, 09/11/19) Patient does not remember the reaction or severity, currently tolerates Ceftriaxone IV and is having no allergic reactions Uncoded Allergies: PCN (Allergy, Unknown, 09/10/19) Objective Vital Signs Last 24 Hour Vital Signs Date Time Temp Pulse Resp B/P (MAP) Pulse Ox O2 Delivery O2 Flow Rate FiO2 09/23/19 09:00 Room Air 09/23/19 08:00 97.5 89 22 114/70 (85) 93 09/23/19 04:00 97.5 89 22 113/70 (84) 93 09/23/19 00:00 98.1 80 22 131/69 (89) 96 09/22/19 21:00 Room Air 09/22/19 20:00 98.2 87 20 113/73 (86) 95 09/22/19 16:00 97.9 91 18 108/70 (83) 95 09/22/19 12:00 97.9 87 18 115/77 (90) 94 Height (Feet): 5 Height (Inches): 7.00 Weight (Pounds): 202 Microbiology Date/Time Source Procedure Growth Status 09/22/19 16:10 Nasopharynx SARS-CoV-2 RdRp Gene Assay - Final Complete Current Medications Medications (Trade) Dose Ordered Sig/Prasad Route PRN Reason Start Time Stop Time Status Last Admin Dose Admin Acetaminophen (Tylenol) 650 mg Q4H PRN ORAL Mild Pain (Pain Scale 1-3) 09/16/19 17:09 10/16/19 17:08 Al Hydroxide/Mg Hydroxide (Mylanta) 30 ml Q4H PRN ORAL Constipation 09/16/19 17:10 10/16/19 17:09 Albuterol Sulfate (Proventil MDI) 2 puff Q4H PRN INH Shortness of Breath 09/16/19 17:10 12/15/19 17:09 Guaifenesin/ Dextromethorphan (Robitussin DM Syrup) 10 ml Q4H PRN ORAL For Cough 09/16/19 17:10 12/15/19 17:09 09/16/19 22:46 Heparin Sodium (Porcine) (Heparin 5000 units/ml) 5,000 units EVERY 12 HOURS SUBQ 09/16/19 21:00 10/25/19 20:59 09/23/19 08:26 Ondansetron HCl (Zofran) 4 mg Q6H PRN IVP Nausea & Vomiting 09/16/19 17:10 10/16/19 17:09 Pantoprazole (Protonix) 40 mg DAILY ORAL 09/17/19 09:00 10/11/19 08:59 09/23/19 08:24 Lucien Pena MD Sep 23, 2019 11:04
[2019-09-23 12:00] VITALS: BP 118/69
--- NOTE | 2019-09-25 10:29 | Discharge Summary ---
Discharge Summary Discharge Summary _ DATE OF ADMISSION: 09/10/2019 DATE OF DISCHARGE: 09/23/2019 DISCHARGED BY: Dr. Howell REASON FOR ADMISSION: 39 years old male with past medical history of spinal cord injury, paraplegia, urinary retention with need for self-catheterization, nonambulatory, presented with a cough and shortness of breath for 1 week. Per patient his family members were tested positive for COVID infection 2 days ago. Upon evaluation, patient was tachycardic, hypoxic ,and febrile with fever up to 102 . Laboratory work-up revealed no leukocytosis, stable hemoglobin, hematocrit , lymphopenia noted. Urinalysis revealed pyuria, +3 leukocyte esterase, some bacteria , +3 protein. Lactic acid 1.1. Sodium 131. BUN 8, creatinine 1.0. Stable LFT. Troponin negative. EKG revealed sinus tachycardia no acute ischemic changes. Albumin 3.3. Chest x-ray demonstrated bilateral infiltrates , likely pneumonia. In emergency department patient pancultured, started on empiric antibiotics , swabbed for COVID-19 and admitted for further management. CONSULTANTS: ID specialist Dr. Pena HOSPITAL COURSE: Patient admitted and was kept in isolation. Patient was on empiric antibiotic as per ID specialist recommendation. SARS COV 2 by YOLANDA on 09/09 and 09/21 detected. Sputum culture was negative. Urine culture revealed E. coli. Blood cultures were negative. Patient completed treatment with Remdesivir. Patient received antibiotic for E. coli UTI. Fevers resolved. No leukocytosis. Supplemental oxygen provided and titrated to keep pulse oximetry above 90%. Pulmonary toilet provided. Patient was followed-up with chest x-ray. Last chest x-ray showed improvement in aeration. DVT and GI prophylaxis provided. Antitussive provided as needed. Patient noted at some point elevated LFT. LFT were closely monitored and started to trend down. Patient clinically stabilized and was ready for discharge. FINAL DIAGNOSES: COVID-19 pneumonia Hypoxemia E. coli UTI Spinal cord injury Paraplegia Transaminitis DISCHARGE MEDICATIONS: See Medication Reconciliation list. DISCHARGE INSTRUCTIONS: Patient was discharged home. Follow-up with a primary care provider in 1 week. I have been assigned to dictate discharge summary for this account. I was not involved in the patient's management. Hodan Lozoya NP Sep 25, 2019 10:29
== END 2019-09-23 15:09 | disposition home or self-care (01) | DRG 137 ==
LOC: EDBD 13:09 → EDSEX 13:09 → EMR 13:32 → 2E 15:42 → EDBEDREQ 17:46 → 4E 09-16 17:00
DX: U07.1 COVID-19 (principal); J12.9 Viral pneumonia, unspecified; G82.20 Paraplegia, unspecified; N39.0 Urinary tract infection, site not specified; R09.02 Hypoxemia; Z88.0 Allergy status to penicillin; B96.20 Unspecified Escherichia coli [E. coli] as the cause of diseases classified elsewhere; N39.498 Other specified urinary incontinence; T14.8XXD Other injury of unspecified body region, subsequent encounter; X58.XXXD Exposure to other specified factors, subsequent encounter; R74.0 Nonspecific elevation of levels of transaminase and lactic acid dehydrogenase [LDH]
CPT/HCPCS: 36415; 36600; 71045; 80048; 80053; 80076; 81003; 82550; 82553; 82728; 82803; 83605; 84484; 85007; 85025; 85379; 86140; 87040; 87070; 87086; 87181; 87205; 93005; 96361; 96365; 96368; 99291; J2405; J7030; U0002